=== PATIENT | male | born 1960 | race Caucasian/White ===

== ENCOUNTER 2018-02-28 13:07 | Emergency (ER) | payer MEDICARE, OTHER, SELFPAY ==
[2018-02-28 13:12] VITALS: BP 148/84; PULSE 82; RESP 20; TEMP 36.7; O2SAT 96
--- NOTE | 2018-02-28 14:56 | DI.CT.S_ITS ---
PROCEDURE: CT ABDOMEN PELVIS W CON INDICATIONS: Generalized abdominal pain with bloating TECHNIQUE: After the administration of intravenous contrast, 5 mm thick sections acquired from the diaphragm to the symphysis. 5 mm coronal and sagittal reformats were acquired. For radiation dose reduction, the following was used: automated exposure control, adjustment of mA and/or kV according to patient size. COMPARISON: None. FINDINGS: Image quality: Excellent. ABDOMEN: Lung bases: No pulmonary infiltrates or pleural effusions. There are small sub-4 mm peripheral nodules seen bilaterally, left greater than right such as series 3/image 2. Heart size is normal. No pericardial effusion. No hiatal hernia. Mild, circumferential wall thickening distal esophagus. Solid organs: Liver is normal in size and homogeneously hypodense in enhancement. Gallbladder appears normal. Biliary system is non dilated. Pancreas enhances normally. Spleen is normal in size and enhancement. No adrenal nodules. Kidneys demonstrate normal size and enhancement, without hydronephrosis. Peritoneum and bowel: Bowel loops demonstrate normal wall thickness and caliber. Normal appendix. No free fluid or air. Nodes and vessels: No retroperitoneal or mesenteric adenopathy by size criteria. Aorta and inferior vena cava are normal in size. Miscellaneous: No ventral hernias. PELVIS: Genitourinary: Bladder wall thickness is normal. Prostate and seminal vesicles appear normal. Miscellaneous: No inguinal hernias or adenopathy. Bones: No suspicious bony lesions. No acute vertebral body compression fractures. There is mild anterior wedging lower thoracic vertebrae IMPRESSION: 1. No acute findings in the abdomen or pelvis. 2. Hepatic steatosis. Correlate with liver function tests. 3. Normal appendix. No evidence of inflammatory bowel disease. 4. Scattered small peripheral nodules in the lung base are indeterminate. A noncontrast CT chest in 3-6 months is suggested. Dictated by: Farhat Gray M.D. on 02/28/2018 at 16:07 Approved by: Farhat Gray M.D. on 02/28/2018 at 16:16
[2018-02-28] MEDS: KETOROLAC 60 MG/2 ML VIAL 30 MG IV (15:04)
[2018-02-28] MEDS: SODIUM CHLORIDE 0.9% 1,000 ML 150 ML IV (15:06)
[2018-02-28] MEDS: ONDANSETRON 4 MG/2 ML INJ IV (15:06)
[2018-02-28 15:08] LABS: Add Manual Diff / Slide Review NO; Basophils Percent Auto 1.1 % (0-2); Hematocrit 46.2 % (41-53); Hemoglobin 15.5 g/dL (13.5-17.5); Lymphocytes Percent Auto 35.8 % (25-40); Mean Corpuscular HGB Conc 33.6 % (30-36); Mean Corpuscular Hemoglobin 31.8 PG (26-34); Mean Corpuscular Volume 94.7 fL (80-100); Monocytes Percent Auto 12.9 % (3-14); Neutrophils Absolute Auto 3100 /uL (3000-5900); Neutrophils Percent Auto 45.2 % (50-75); Platelet Count 245 X10^3/uL (150-400); Red Blood Cell Count 4.87 X10^6/uL (4.5-5.9); Red Cell Distribution Width 12.9 % (11.6-14.8); White Blood Cell Count 6.8 X10^3/uL (4.5-11.0)
[2018-02-28 15:17] LABS: Alanine Aminotransferase 39 IU/L (21-72); Albumin Globulin Ratio 1.4 (1.0-2.8); Alkaline Phosphatase 81 U/L (38-126); Aspartate Aminotransferase 35 IU/L (17-59); Bilirubin Total 0.7 mg/dL (0.2-1.3); Blood Urea Nitrogen 12 mg/dL (9-20); Carbon Dioxide 27 mmol/L (22-32); Chloride 103 mmol/L (98-107); Estimated Glomerular Filt Rate > 60.0 mL/min (>60); Globulin 2.9 g/dL (1.7-4.1); Glucose 248 mg/dL (70-100); HEMOLYSIS 30 (0-50); Lipase 78 U/L (23-300); Potassium 4.3 mmol/L (3.4-5.1); Sodium 139 mmol/L (137-145); Total Protein 6.9 g/dL (6.3-8.2)
--- NOTE | 2018-02-28 15:18 | ED_ITS ---
HPI - Abdominal Pain <KYLAH Arauz - Last Filed: 02/28/18 20:57> General Chief Complaint: Abdominal Pain Stated Complaint: STOMACH BLOATING,NAUSEA Time Seen by Provider: 02/28/18 13:47 Source: patient Mode of arrival: ambulatory Limitations: no limitations History of Present Illness HPI narrative: 57-year-old male here for complaint of having pain into his abdominal area over the last several days approximately 3-5. He states that he has also had bloating during the same time. He reports his last bowel movement was yesterday and was unremarkable although slightly like color. He denies any trauma to the abdomen. He states he does have some nausea as well. No fevers. Although he does state that he fell he did have a chill a couple days ago. Positive p.o. intake. He denies any urinary symptoms. He denies any stressors or relievers of her symptoms. MD complaint: abdominal pain Related Data Home Medications Medication Instructions Recorded Confirmed Several Other Meds [facility] 02/28/18 simvastatin 20 mg PO DAILY 02/28/18 sitagliptin-metformin [Janumet] 1 tab PO BID 02/28/18 02/28/18 Previous Rx's Medication Instructions Recorded ondansetron 4 mg PO TID PRN #9 tab 02/28/18 Allergies Allergy/AdvReac Type Severity Reaction Status Date / Time meperidine [From Demerol] Allergy Severe Anaphylaxis Verified 02/28/18 13:15 Review of Systems <KYLAH Arauz - Last Filed: 02/28/18 20:57> Constitutional Reports chills and Denies fever(s) Eyes Denies change in vision, Denies eye discharge, Denies irritation and Denies loss of vision ENT Ears, Nose, Mouth, and Throat: Denies change in voice, Denies neck pain and Denies sore throat Cardiovascular Denies chest pain, Denies irregular heart rhythm, Denies lightheadedness, Denies palpitations, Denies dyspnea, Denies dyspnea on exertion and Denies orthopnea Respiratory Denies cough, Denies dyspnea, Denies dyspnea on exertion and Denies wheezing Gastrointestinal Gastrointestinal: Reports abdominal pain and Reports bloating Genitourinary Denies hematuria, Denies flank pain, Denies urinary incontinence and Denies urinary urgency Musculoskeletal Denies neck pain Integumentary/Breasts Denies pruritus, Denies erythema, Denies rash and Denies wounds Neurologic Denies confusion and Denies loss of vision Psychiatric Denies anxiety, Denies confusion, Denies depression, Denies homicidal ideation and Denies suicidal ideation Endocrine Denies palpitations Hematologic/Lymphatic Denies easy bruising Allergic/Immunologic Denies wheezing Exam <KYLAH Arauz - Last Filed: 02/28/18 20:57> Initial Vital Signs Initial Vital Signs: Vital Signs Temperature 98.1 F 02/28/18 13:12 Pulse Rate 82 02/28/18 13:12 Respiratory Rate 20 02/28/18 13:12 Blood Pressure 148/84 H 02/28/18 13:12 Pulse Oximetry 96 02/28/18 13:12 Const General: cooperative and well developed Nutritional Appearance: well nourished Orientation: alert, awake, oriented x3 and not confused HENMT Mouth: oral mucosae normal and moist mucous membranes Eyes Conjunctivae: conjunctivae normal Sclera: sclerae normal Pupils: PERRL EOM: EOM intact bilaterally Resp Effort & Inspection: normal respiratory effort, able to speak in complete sentences, no respiratory distress and no use of accessory muscles Auscultation: clear to auscultation bilaterally, no rales, no rhonchi and no wheezes Cardio Rate: regular rate Rhythm: regular rhythm Heart Sounds: no click, no gallops, no murmurs and no rubs Pulses: normal peripheral pulses GI Inspection: non-distended Palpation: soft, no hepatosplenomegaly, No guarding, No pulsatile mass and tender (Generalized abdominal discomfort) Auscultation: normal bowel sounds General: No CVA tenderness Skin General: no rashes or lesions noted, No jaundice and No petechiae Neuro General: alert, oriented x3, gait normal and no focal motor deficits Speech: speech normal <Manuel Berry DO - Last Filed: 03/01/18 19:29> Initial Vital Signs Initial Vital Signs: Vital Signs Temperature 98.1 F 02/28/18 13:12 Pulse Rate 82 02/28/18 13:12 Respiratory Rate 20 02/28/18 13:12 Blood Pressure 148/84 H 02/28/18 13:12 Pulse Oximetry 96 02/28/18 13:12 Course <KYLAH Arauz - Last Filed: 02/28/18 20:57> Orders Ordered: Discontinued Medications Sodium Chloride (Normal Saline 0.9%) 1,000 mls @ 150 mls/hr IV CONT [facility] Last Infusion: 02/28/18 17:30 Dose: 0 mls/hr Admin: 02/28/18 15:06 Dose: 150 mls/hr Ketorolac Tromethamine (Toradol) 30 mg IV NOW ONE Stop: 02/28/18 14:56 Last Admin: 02/28/18 15:04 Dose: 30 mg Ondansetron HCl (Zofran) 4 mg IV NOW ONE Stop: 02/28/18 14:56 Last Admin: 02/28/18 15:06 Dose: 4 mg Vital Signs - 8 hr 02/28/18 13:12 02/28/18 15:22 02/28/18 17:26 Temperature 98.1 F 98.4 F Pulse Rate 82 68 68 Respiratory Rate 20 15 18 Blood Pressure 148/84 H 120/75 Blood Pressure [Left Arm] 140/86 H Pulse Oximetry 96 98 99 <Manuel Berry DO - Last Filed: 03/01/18 19:29> Orders Ordered: Discontinued Medications Sodium Chloride (Normal Saline 0.9%) 1,000 mls @ 150 mls/hr IV CONT [facility] Last Infusion: 02/28/18 17:30 Dose: 0 mls/hr Admin: 02/28/18 15:06 Dose: 150 mls/hr Ketorolac Tromethamine (Toradol) 30 mg IV NOW ONE Stop: 02/28/18 14:56 Last Admin: 02/28/18 15:04 Dose: 30 mg Ondansetron HCl (Zofran) 4 mg IV NOW ONE Stop: 02/28/18 14:56 Last Admin: 02/28/18 15:06 Dose: 4 mg Vital Signs - 8 hr 02/28/18 13:12 02/28/18 15:22 02/28/18 17:26 Temperature 98.1 F 98.4 F Pulse Rate 82 68 68 Respiratory Rate 20 15 18 Blood Pressure 148/84 H 120/75 Blood Pressure [Left Arm] 140/86 H Pulse Oximetry 96 98 99 MDM - Abdominal Pain <KYLAH Arauz - Last Filed: 02/28/18 20:57> Lab Data Result diagrams: 02/28/18 13:45 02/28/18 13:45 Lab Results 02/28/18 02/28/18 Range/Units 13:45 13:45 WBC 6.8 (4.5-11.0) X10^3/uL RBC 4.87 (4.5-5.9) X10^6/uL Hgb 15.5 (13.5-17.5) g/dL Hct 46.2 (41-53) % MCV 94.7 (80-100) fL MCH 31.8 (26-34) PG MCHC 33.6 (30-36) % RDW 12.9 (11.6-14.8) % Plt Count 245 (150-400) X10^3/uL Neut % (Auto) 45.2 L (50-75) % Lymph % (Auto) 35.8 (25-40) % [place] % (Auto) 12.9 (3-14) % Eos % (Auto) 5.0 H (2-4) % Baso % (Auto) 1.1 (0-2) % Neut # (Auto) 3100 (1097-3264) /uL Sodium 139 (137-145) mmol/L Potassium 4.3 (3.4-5.1) mmol/L Chloride 103 (98-107) mmol/L Carbon Dioxide 27 (22-32) mmol/L BUN 12 (9-20) mg/dL Creatinine 0.60 L (0.66-1.25) mg/dL Estimated GFR > 60.0 (>60) mL/min BUN/Creatinine Ratio 20.0 (6-22) Glucose 248 H (70-100) mg/dL Calcium 9.0 (8.4-10.2) mg/dL Total Bilirubin 0.7 (0.2-1.3) mg/dL AST 35 (17-59) IU/L ALT 39 (21-72) IU/L Alkaline Phosphatase 81 (38-126) U/L Total Protein 6.9 (6.3-8.2) g/dL Albumin 4.0 (3.5-5.0) g/dL Globulin 2.9 (1.7-4.1) g/dL Albumin/Globulin Ratio 1.4 (1.0-2.8) Lipase 78 (23-300) U/L Point of care testing: Urine Dip Bedside Urine Glucose 1000 mg/dl Bedside Urine Bilirubin - Negative Bedside Urine Ketone - Negative Urine Specific [place] 1.020 Bedside Urine Occult Blood - Negative Bedside Urine pH 6.0 Bedside Urine Protein +/- 15 Bedside Urine Urobilinogen - Negative Bedside Urine Nitrite - Negative Bedside Urine Leukocytes - Negative Esterase Imaging Data CT scan - abdomen: Radiologist's impression: PROCEDURE: CT ABDOMEN PELVIS W CON INDICATIONS: Generalized abdominal pain with bloating TECHNIQUE: After the administration of intravenous contrast, 5 mm thick sections acquired from the diaphragm to the symphysis. 5 mm coronal and sagittal reformats were acquired. For radiation dose reduction, the following was used: automated exposure control, adjustment of mA and/or kV according to patient size. COMPARISON: None. FINDINGS: Image quality: Excellent. ABDOMEN: Lung bases: No pulmonary infiltrates or pleural effusions. There are small sub- 4 mm peripheral nodules seen bilaterally, left greater than right such as series 3/ image 2. Heart size is normal. No pericardial effusion. No hiatal hernia. Mild, circumferential wall thickening distal esophagus. Solid organs: Liver is normal in size and homogeneously hypodense in enhancement. Gallbladder appears normal. Biliary system is non dilated. Pancreas enhances normally. Spleen is normal in size and enhancement. No adrenal nodules. Kidneys demonstrate normal size and enhancement, without hydronephrosis. Peritoneum and bowel: Bowel loops demonstrate normal wall thickness and caliber. Normal appendix. No free fluid or air. Nodes and vessels: No retroperitoneal or mesenteric adenopathy by size criteria. Aorta and inferior vena cava are normal in size. Miscellaneous: No ventral hernias. PELVIS: Genitourinary: Bladder wall thickness is normal. Prostate and seminal vesicles appear normal. Miscellaneous: No inguinal hernias or adenopathy. Bones: No suspicious bony lesions. No acute vertebral body compression fractures. There is mild anterior wedging lower thoracic vertebrae IMPRESSION: 1. No acute findings in the abdomen or pelvis. 2. Hepatic steatosis. Correlate with liver function tests. 3. Normal appendix. No evidence of inflammatory bowel disease. 4. Scattered small peripheral nodules in the lung base are indeterminate. A noncontrast CT chest in 3-6 months is suggested. Dictated by: Farhat Gray M.D. on 02/28/2018 at 16:07 Approved by: Farhat Gray M.D. on 02/28/2018 at 16:16 MDM Narrative Medical decision making narrative: CBC was obtained was unremarkable. Chem panel shows elevated blood sugar of 248 otherwise was unremarkable. A urinalysis was negative for urinary tract infection. Lipase was negative. CT of the abdomen was obtained was negative for any acute findings. No emergent cause of his generalized abdominal pain is found. Differential between abdominal wall pain and acute gastroenteritis. [id number] Tylenol or Motrin as needed for any discomfort. Follow up with primary care provider in the next several days for re-evaluation. For any worsening symptoms return to the emergency room. <Manuel Berry DO - Last Filed: 03/01/18 19:29> Lab Data Lab Results 02/28/18 02/28/18 Range/Units 13:45 13:45 WBC 6.8 (4.5-11.0) X10^3/uL RBC 4.87 (4.5-5.9) X10^6/uL Hgb 15.5 (13.5-17.5) g/dL Hct 46.2 (41-53) % MCV 94.7 (80-100) fL MCH 31.8 (26-34) PG MCHC 33.6 (30-36) % RDW 12.9 (11.6-14.8) % Plt Count 245 (150-400) X10^3/uL Neut % (Auto) 45.2 L (50-75) % Lymph % (Auto) 35.8 (25-40) % [place] % (Auto) 12.9 (3-14) % Eos % (Auto) 5.0 H (2-4) % Baso % (Auto) 1.1 (0-2) % Neut # (Auto) 3100 (9990-1467) /uL Sodium 139 (137-145) mmol/L Potassium 4.3 (3.4-5.1) mmol/L Chloride 103 (98-107) mmol/L Carbon Dioxide 27 (22-32) mmol/L BUN 12 (9-20) mg/dL Creatinine 0.60 L (0.66-1.25) mg/dL Estimated GFR > 60.0 (>60) mL/min BUN/Creatinine Ratio 20.0 (6-22) Glucose 248 H (70-100) mg/dL Calcium 9.0 (8.4-10.2) mg/dL Total Bilirubin 0.7 (0.2-1.3) mg/dL AST 35 (17-59) IU/L ALT 39 (21-72) IU/L Alkaline Phosphatase 81 (38-126) U/L Total Protein 6.9 (6.3-8.2) g/dL Albumin 4.0 (3.5-5.0) g/dL Globulin 2.9 (1.7-4.1) g/dL Albumin/Globulin Ratio 1.4 (1.0-2.8) Lipase 78 (23-300) U/L Point of care testing: Urine Dip Bedside Urine Glucose 1000 mg/dl Bedside Urine Bilirubin - Negative Bedside Urine Ketone - Negative Urine Specific [place] 1.020 Bedside Urine Occult Blood - Negative Bedside Urine pH 6.0 Bedside Urine Protein +/- 15 Bedside Urine Urobilinogen - Negative Bedside Urine Nitrite - Negative Bedside Urine Leukocytes - Negative Esterase Discharge Plan Departure Patient Disposition: Home, Self-Care Clinical Impression: Abdominal pain Discharge Date/Time: 02/28/18 17:26 Interventions: ED Discharge Assessment Last Done: 02/28/18 17:26 Instructions: DI for Abdominal Pain-Adult Activity Restrictions/Additional Instructions: Laboratory results today were unremarkable with the exception of elevated blood glucose. Ensure you are taking your diabetes medicine as prescribed. CT of the abdomen was obtained was negative for any acute findings. Signs and symptoms may be due to viral illness or due to abdominal wall pain. Use over- the-counter Tylenol or Motrin as needed for any discomfort. Follow up with her primary care provider in the next several days. For any worsening symptoms return to the emergency room. Prescriptions: New ondansetron 4 mg tablet,disintegrating 4 mg PO TID PRN (Reason: nausea and vomiting) Qty: 9 RF: 0 No Action simvastatin 20 mg tablet 20 mg PO DAILY RF: 0 sitagliptin-metformin [Janumet] 50-1,000 mg tablet 1 tab PO BID RF: 0 Several Other Meds Through [facility] RF: 0 Referrals: [facility] [Provider Group] <Manuel Berry, - Last Filed: 03/01/18 19:29> Cosign ED Attending Becky Attestation: I was available for consultation during this patient's emergency department encounter
[2018-02-28 15:22] VITALS: BP 140/86; PULSE 68; RESP 15; O2SAT 98
[2018-02-28 17:26] VITALS: BP 120/75; PULSE 68; RESP 18; TEMP 36.9; O2SAT 99
== END 2018-02-28 17:26 | disposition home or self-care (01) ==
PROVIDERS: Emergency Provider Nurse Practitioner Family
DX: R10.9 Unspecified abdominal pain (principal)
CPT/HCPCS: 36591; 74177; 80053; 81003; 83690; 85025; 96361; 96374; 96375; 99283; 99284; J1885; J2405; Q9967

== ENCOUNTER → 2019-04-13 15:22 | Outpatient (CLI) | payer MEDICARE, OTHER, SELFPAY ==
--- NOTE | 2019-04-13 | DI.MRI.S_ITS ---
PROCEDURE: MR SHOULDER RT WO CON INDICATIONS: Right shoulder pain TECHNIQUE: Noncontrast oblique coronal T2 fast spin echo with fat saturation, oblique sagittal T1 spin echo and T2 fast spin echo with fat saturation, axial T1 spin echo and T2 fast spin echo with fat saturation through the shoulder. COMPARISON: [facility], , SHOULDER WITHOUT CONTRAST, 03/09/2017, 15:46. FINDINGS: Image quality: Excellent. Rotator cuff: Tendinosis and low to moderate grade articular and bursal surface partial-thickness tear involving distal supraspinatus at its insertion the humeral head is seen extending to musculotendinous junction. There is tendinosis and low-grade articular and bursal surface partial-thickness tear involving distal supraspinatus at its insertion the humeral head. Distal subscapularis tendon is intact. Sagittal images demonstrate mild to moderate supraspinatus muscle atrophy. Bones and bursae: No bone marrow contusions or fractures. Moderate acromioclavicular joint and glenohumeral joint osteoarthritis is seen. There is small to moderate amount of fluid within subacromial subdeltoid bursa. No gross intra-articular loose body. Capsule and soft tissues: In the absence of intra-articular contrast, there is superior anterior labral tear extending from 12 to 2:00 position. There is also suggestion of anterior inferior labral tear 4 to 6:00 position. The glenohumeral ligaments appear intact. Tendinosis and low-grade partial-thickness tear involving proximal intra-articular portion of long head biceps tendon is seen. The rotator interval appears normal, without fibrosis. The coracohumeral ligament is normal in thickness. IMPRESSION: 1. Tendinosis and low to moderate grade articular and bursal surface partial-thickness tear involving distal supraspinatus and infraspinatus insertions are humeral head extending to musculotendinous junction. Mild supraspinatus muscle atrophy. 2. Moderate acromioclavicular joint and glenohumeral joint osteoarthritis. 3. Suggestion of superior anterior labral tear at 12 to 2:00 position and an anterior inferior labral tear at 4 to 6:00 position. 4. Tendinosis and low-grade partial-thickness tear involving proximal intra-articular portion of long head of the biceps tendon. Dictated by: Ramiro Khalil M.D. on 04/13/2019 at 16:45 Approved by: Ramiro Khalil M.D. on 04/13/2019 at 16:56
--- NOTE | 2019-04-13 | DI.MRI.S_ITS ---
PROCEDURE: MR CERVICAL SPINE WO CON INDICATIONS: Neck and right shoulder pain TECHNIQUE: Noncontrast sagittal T1 spin echo and T2 fast spin echo, sagittal STIR, foraminal oblique sagittal T2 fast spin echo, and axial gradient echo or T2 fast spin echo through the cervical spine. COMPARISON: [facility], , C-SPINE WITHOUT CONTRAST, 04/08/2017, 14:17. FINDINGS: Image quality: Excellent. Alignment and Curvature: There is normal bony alignment. Bone Marrow: Marrow demonstrates normal overall signal. Spinal Cord: Visualized spinal cord has normal size and signal. No cerebellar tonsillar herniation. Paraspinous Soft Tissues: No paravertebral masses. Prevertebral soft tissues are normal in thickness. C2-C3: Normal appearance. C3-C4: Moderate disc osteophyte complex is again seen eccentric to the right unchanged from prior study. Right lateral recess disc osteophyte protrusion is again noted and unchanged. Bilateral facet joint hypertrophy is also seen. Moderate bilateral neuroforaminal narrowing is seen. Moderate central canal stenosis is also noted and unchanged. C4-C5: Mild loss of disc height is again seen. Moderate disc osteophyte complex is again seen. Bilateral facet joint hypertrophy is again noted. Moderate right worse than left bilateral neuroforaminal narrowing is seen. Moderate central canal stenosis is also noted. This is also unchanged from previous study. C5-C6: Decreased intervertebral disc space and degenerative endplate changes are again noted. Moderate to prominent disc osteophyte complex formation and bilateral facet hypertrophic changes are again seen. Moderate to severe central canal stenosis and bilateral lower foraminal narrowing is again seen slightly worse on the right side unchanged from prior study. C6-C7: Decreased intervertebral disc space is seen. Moderate prominent disc osteophyte complex is again noted. Uncovertebral joint hypertrophy is again noted. Moderate bilateral neuroforaminal narrowing or central canal stenosis is again seen and unchanged. C7-T1: Normal appearance. IMPRESSION: 1. No significant changes from previous study in 2017. 2. Multilevel cervical spine degenerative changes more prominent at C5-6 level as above. Dictated by: Ramiro Khalil M.D. on 04/13/2019 at 16:56 Approved by: Ramiro Khalil M.D. on 04/13/2019 at 17:00
== END ==
PROVIDERS: Visit Provider Physical Medicine & Rehabilitation
DX: M54.2 Cervicalgia (principal); M25.511 Pain in right shoulder; M19.011 Primary osteoarthritis, right shoulder; M75.111 Incomplete rotator cuff tear or rupture of right shoulder, not specified as traumatic; M47.812 Spondylosis without myelopathy or radiculopathy, cervical region; S46.111A Strain of muscle, fascia and tendon of long head of biceps, right arm, initial encounter; M62.511 Muscle wasting and atrophy, not elsewhere classified, right shoulder
CPT/HCPCS: 72141; 73221

== ENCOUNTER 2021-05-01 14:45 | Emergency (ER) | payer MEDICARE, OTHER, SELFPAY ==
[2021-05-01 14:58] VITALS: BP 126/67; PULSE 88; RESP 18; TEMP 36.1; O2SAT 98; BMI 29.7
--- NOTE | 2021-05-01 15:13 | DI.US.S_ITS ---
PROCEDURE: US PERIPH VENOUS LOW EXTREM RT INDICATIONS: RIGHT LEG PAIN WITHOUT INJURY TECHNIQUE: Real-time imaging, as well as color and pulse Doppler interrogation, were performed of the lower extremity deep veins from the inguinal ligament to the popliteal fossa. COMPARISON: None. FINDINGS: The common femoral, femoral and popliteal veins are normally compressible, and free of intraluminal thrombus. Color and pulse Doppler demonstrate normal phasic intraluminal flow. There is normal augmentation response to distal compression maneuver. IMPRESSION: No evidence of DVT in visualized right lower extremity veins. Dictated by: Ramiro Khalil M.D. on 05/01/2021 at 16:35 Approved by: Ramiro Khalil M.D. on 05/01/2021 at 16:36
[2021-05-01 20:20] VITALS: BP 143/63; PULSE 68; RESP 15; O2SAT 97
--- NOTE | 2021-05-01 20:38 | ED_ITS ---
HPI - Extremity Problem General Chief complaint: Extremity Problem,Nontraumatic Stated complaint: RIGHT LEG MASSIVE PAIN Time Seen by Provider: 05/01/21 20:33 Source: patient Mode of arrival: Ambulatory Limitations: no limitations History of Present Illness HPI Narrative: Patient is a 60-year-old male with history of diabetes, PTSD, hyperlipidemia, GERD who presents with right leg pain ongoing for last 2 days. He says he does not remember any injury. He says he is active at home in the wood shop but can not pinpoint any specific injury. He certainly did not fall. He has pinpoint pain in his superior ITP band. He says he cannot touch and 1 area. His tried to massage it and was unsuccessful. He has been putting heat on it. He took Flexeril last night he has been taking ibuprofen intermittently without significant relief. He denies any numbness tingling or weakness. He says it is very difficult to go up stairs but he can walk although it is painful. Within fever or chills. He denies any back pain no buttock pain. This certainly reproducible to touch. Related Data Home Medications Medication Instructions Recorded Confirmed simvastatin 20 mg tablet 10 mg PO BEDTIME 02/28/18 03/02/18 sitagliptin 50 mg-metformin 1,000 1 tab PO BID 02/28/18 02/28/18 mg tablet ammonium lactate 12 % topical cream 1 applic TOPICAL [id number] 03/02/18 03/02/18 cholecalciferol (vitamin D3) 25 1,000 unit PO DAILY 03/02/18 03/02/18 mcg (1,000 unit) tablet (Vitamin D3) ketoconazole 2 % topical cream 1 applic TOPICAL DAILY 03/02/18 03/02/18 omeprazole 20 mg capsule,delayed 20 mg PO DAILY 03/02/18 03/02/18 release prazosin 2 mg capsule 2 mg PO BEDTIME 03/02/18 03/02/18 quetiapine 400 mg tablet 200 mg PO BEDTIME 03/02/18 03/02/18 sulindac 200 mg tablet 200 mg PO BID 03/02/18 03/02/18 triamcinolone acetonide 0.025 % 1 applic TOPICAL BID PRN 03/02/18 03/02/18 topical cream Previous Rx's Medication Instructions Recorded ondansetron 4 mg disintegrating 4 mg PO TID PRN #9 tab 02/28/18 tablet hydrocodone 5 mg-acetaminophen 325 1 tab PO Q6H PRN #10 tab 05/01/21 mg tablet methocarbamol 750 mg tablet 750 mg PO TID PRN #20 tab 05/01/21 Allergies Allergy/AdvReac Type Severity Reaction Status Date / Time meperidine [From Demerol] Allergy Severe Anaphylaxis Verified 05/01/21 14:58 Review of Systems Review of Systems Narrative: GENERAL: Denies chills, fatigue, malaise, fever, sweats, travel HEENT: Denies sinus pain, ear pain, sore throat, difficulty swallowing, neck pain RESPIRATORY: Denies dyspnea, cough, wheezing, hemoptysis, sputum. CARDIOVASCULAR: Denies chest pain, palpitations, orthopnea, edema GASTROINTESTINAL: Denies nausea, vomiting, abdominal pain, diarrhea, constipation, melena. : Denies dysuria, frequency, incontinence, hematuria, urinary retention, flank pain. MUSCULOSKELETAL: See HPI SKIN: No rash, no erythema, no pruritus NEUROLOGIC: Denies weakness, dizziness, headache, numbness, change in speech, co nfusion PSYCHIATRIC: No concerning psychosocial issues. 12 point review of systems is negative except for those stated above and HPI Patient History Medical History (Updated 05/01/21 @ 21:38 by Hortencia Welsh DO) Type 2 diabetes mellitus Social History Smoking Status: Current every day smoker Smoking Status: Current every day smoker alcohol intake frequency: 0-2 drinks per day Substance Use Type: does not use Exam Initial Vital Signs Initial Vital Signs: Vital Signs Temperature 97.0 F L 05/01/21 14:58 Pulse Rate 88 05/01/21 14:58 Respiratory Rate 18 05/01/21 14:58 Blood Pressure 126/67 05/01/21 14:58 Pulse Oximetry 98 05/01/21 14:58 GENERAL: Alert 60-year-old male appears in pain HEENT: Head atraumatic,EOMI, pupils reactive, face symmetric, moist mucous membranes CARDIOVASCULAR: Regular rate and rhythm without murmurs, rubs or gallops. RESPIRATORY: Breath sounds equal bilaterally, no wheezes rales or rhonchi. ABDOMEN: Soft, nontender. Normoactive bowel sounds all 4 quadrants. No guarding or rebound. BACK: No vertebral tenderness no step-off : No CVA tenderness EXTREMITIES: Normal range of motion, no clubbing or edema. Neurovascularly intact Right leg along the superior aspect of the IT band extremely tender to touch mild swelling no erythema. Decreased range of motion secondary to pain. No significant buttock pain mild lower lumbar pain strong distal pedal pulse intact. No significant swelling of the leg. Hip itself is nontender pelvis is stable. NEUROLOGICAL: Alert and oriented x4.Normal gait and speech. SKIN: Warm, dry, no laceration, no petechiae, no rashes or lesions. Course Orders Ordered: ED Orders 05/01/21 15:13 periph venous low extrem rt Stat Discontinued Medications Hydrocodone Bitart/Acetaminophen (Hydrocodone/Acet 5/325 Prepack) 1 bottle MISC SEEINSTR ONE Stop: 05/01/21 21:39 Last Admin: 05/01/21 21:42 Dose: 1 bottle Documented by: TEJAL Ketorolac Tromethamine (Ketorolac 30 Mg/Ml Vial) 30 mg IM NOW ONE Stop: 05/01/21 20:52 Last Admin: 05/01/21 20:57 Dose: 30 mg Documented by: TEJAL Vital Signs Vital signs: Vital Signs - 8 hr 05/01/21 14:58 05/01/21 20:20 Temperature 97.0 F L Pulse Rate 88 68 Respiratory Rate 18 15 Blood Pressure 126/67 143/63 H Pulse Oximetry 98 97 MDM - Extremity (Nontraumatic) Imaging Data US - DVT: Radiologist's Impression: PROCEDURE:? US PERIPH VENOUS LOW EXTREM RT ? INDICATIONS:? RIGHT LEG PAIN WITHOUT INJURY ? TECHNIQUE:? Real-time imaging, as well as color and pulse Doppler interrogation, were performed of the lower extremity deep veins from the inguinal ligament to the popliteal fossa.? ? COMPARISON:? None. ? FINDINGS:? The common femoral, femoral and popliteal veins are normally compressible, and free of intraluminal thrombus.? Color and pulse Doppler demonstrate normal phas ic intraluminal flow.? There is normal augmentation response to distal compression maneuver. ? ? IMPRESSION:? No evidence of DVT in visualized right lower extremity veins. ? ? Dictated by: Ramiro Khalil M.D. on 05/01/2021 at 16:35 ? ? [facility] Narrative Medical decision making narrative: Patient definitely has pinpoint reproducible tenderness. There is no sign of infection. He actually has improvement after Toradol and definitely has increased range of motion. No neurologic deficits. This seems to be musculoskeletal based on history and physical exam. DVT study is also negative, would be very unlikely for this to be a DVT. Discharge Plan Departure Patient Disposition: Home Clinical Impression: Iliotibial band syndrome of right side Instructions: Iliotibial Band Syndrome Activity Restrictions/Additional Instructions: *You have been diagnosed with iliotibial band syndrome *What to do: At this time this does seem to be a tightening of your eye T band and musculoskeletal. I recommend heating pad, stretching. *Continue to take medications as directed Kearsarge 1 tablet every 6 hours if needed for severe pain Ibuprofen 800 mg every 8 hours if needed for [id number] pain Methocarbamol 750-1500 mg 3 times a day *Follow up with your primary care provider in 2-3 days *Return to ER if you should have fever, redness, numbness, tingling, weakness or any new, worsening or concerning symptoms CONTROLLED SUBSTANCE DISCHARGE (Narcotoic/benzodiazepine/Flexeril/Phenergan) 1. You have been prescribed narcotic medications, it does have acetaminophen/Tylenol/paracetamol in it, DO NOT TAKE MORE THAN 4,00mg in 24 yulissa rs of Tylenol. TRAMADOL DOES NOT CONTAIN TYLENOL 2. Please understand that we cannot provide further refills of narcotics, benzodiazepines or controlled substances through the ED and her pain management will need to be through your provider. 3. While on these medications you cannot drive or operate heavy machinery. 4. You cannot sign legal documents or perform any duties such as this. 5. As long as you're taking opiate pain medications he should also be taking a stool softener such as Colace, Dulcolax, MiraLAX or prune juice, to help avoid constipation. Prescriptions: New methocarbamol 750 mg tablet 750 mg PO TID PRN (Reason: muscle spasm) Qty: 20 RF: 0 hydrocodone-acetaminophen 5-325 mg tablet 1 tab PO Q6H PRN (Reason: pain) Qty: 10 RF: 0 No Action simvastatin 20 mg tablet 10 mg PO BEDTIME RF: 0 sitagliptin-metformin [Janumet] 50-1,000 mg tablet 1 tab PO BID RF: 0 ondansetron 4 mg tablet,disintegrating 4 mg PO TID PRN (Reason: nausea and vomiting) Qty: 9 RF: 0 triamcinolone acetonide 0.025 % Cream 1 applic TOPICAL BID PRN (Reason: itching or rash) RF: 0 omeprazole 20 mg Capsule,Delayed Release(Dr/Ec) 20 mg PO DAILY RF: 0 ammonium lactate 12 % Cream 1 applic TOPICAL [id number] RF: 0 ketoconazole 2 % Cream 1 applic TOPICAL DAILY RF: 0 sulindac 200 mg Tablet 200 mg PO BID RF: 0 prazosin 2 mg Capsule 2 mg PO BEDTIME RF: 0 quetiapine 400 mg Tablet 200 mg PO BEDTIME RF: 0 cholecalciferol (vitamin D3) [Vitamin D3] 1,000 unit Tablet 1,000 unit PO DAILY RF: 0
[2021-05-01] MEDS: KETOROLAC 30 MG/ML VIAL IM (20:57)
[2021-05-01] MEDS: HYDROCODONE/ACET 5/325 PREPACK 1 BOTTLE MISC (21:42)
== END 2021-05-01 21:49 | disposition home or self-care (01) ==
PROVIDERS: Emergency Provider Emergency Medicine
DX: M76.31 Iliotibial band syndrome, right leg (principal)
CPT/HCPCS: 93971; 96372; 99283; J1885

== ENCOUNTER → 2021-11-13 11:16 | Outpatient (CLI) | payer OTHER, SELFPAY ==
--- NOTE | 2021-11-13 | DI.MRI.S_ITS ---
PROCEDURE: MR LUMBAR SPINE WO CON INDICATIONS: LUMBAR SPONDYLOSIS, back pain TECHNIQUE: Noncontrast sagittal T1 spin echo and T2 fast echo, sagittal STIR, and T2 fast spin echo through the lumbar spine. In cases with scoliosis, additional coronal T2 fast spin echo may be performed. COMPARISON: None. FINDINGS: Image quality: Excellent. Alignment and Curvature: There is normal bony alignment. Bone Marrow: Marrow is of normal overall signal. No acute vertebral body compression fractures. Spinal Cord: Conus medullaris terminates at the L1 level. Visualized cord demonstrates normal signal and size. Paraspinous Soft Tissues: No paravertebral masses. T12-L1: Normal appearance. L1-L2: Normal appearance. L2-L3: Disc height is maintained. Circumferential disc bulge and hypertrophic facet joints results in mild central stenosis. No foraminal stenosis. L3-L4: Disc height is maintained. Circumferential disc bulge and hypertrophic facet joints results in mild central stenosis. No foraminal stenosis. L4-L5: Disc height is maintained. Circumferential disc bulge and hypertrophic facet joints results in mild central stenosis. Mild left and no right foraminal stenosis. L5-S1: Disc height is maintained. No central or foraminal stenosis. IMPRESSION: 1. Mild multilevel degenerative disc disease and arthropathy noted without significant central or foraminal stenosis Approved by: Mitul Licona M.D. on 11/13/2021 at 12:30
== END ==
PROVIDERS: Referring Provider Physical Medicine & Rehabilitation; Visit Provider Physical Medicine & Rehabilitation
DX: M47.816 Spondylosis without myelopathy or radiculopathy, lumbar region (principal); M51.36 Other intervertebral disc degeneration, lumbar region
CPT/HCPCS: 72148

== ENCOUNTER 2022-02-16 16:00 | Emergency (ER) | payer OTHER, SELFPAY ==
[2022-02-16] VITALS (9 sets, daily range): BP systolic 96–167; BP diastolic 62–78; PULSE 65–87; RESP 18; TEMP 36.3; O2SAT 92–98
--- NOTE | 2022-02-16 16:53 | ED_ITS ---
HPI - Abdominal Pain <Pancho Guido PA-C - Last Filed: 02/16/22 20:28> General Chief Complaint: Abdominal Pain Stated Complaint: upper abd pain, lost 45 lbs in 6 months Time Seen by Provider: 02/16/22 16:33 Source: patient Mode of arrival: Ambulatory History of Present Illness HPI narrative: 61 yo M with past medical history diabetes, hyperlipidemia, GERD, PTSD presents to the ED with 6 months of epigastric pain. Patient states that he has lost 45 lb over the last 6 months, which he attributes to not being able to eat as much. Patient states that eating makes his pain worse, causes some mild nausea. Denies fever, chills, chest pain, shortness of breath, vomiting, diarrhea, constipation, dysuria, flank pain. [facility] was [facility], they recommended he go to the ED. patient had a CT abdomen pelvis in 2018 when he came in for abdominal pain, which showed sc attered small peripheral nodules in the lung base, but no other acute findings. Related Data Home Medications Medication Instructions Recorded Confirmed simvastatin 20 mg tablet 10 mg PO BEDTIME 02/28/18 03/02/18 sitagliptin 50 mg-metformin 1,000 1 tab PO BID 02/28/18 02/28/18 mg tablet ammonium lactate 12 % topical cream 1 applic topical [id number] 03/02/18 03/02/18 cholecalciferol (vitamin D3) 25 1,000 unit PO DAILY 03/02/18 03/02/18 mcg (1,000 unit) tablet (Vitamin D3) ketoconazole 2 % topical cream 1 applic topical DAILY 03/02/18 03/02/18 omeprazole 20 mg capsule,delayed 20 mg PO DAILY 03/02/18 03/02/18 release prazosin 2 mg capsule 2 mg PO BEDTIME 03/02/18 03/02/18 quetiapine 400 mg tablet 200 mg PO BEDTIME 03/02/18 03/02/18 sulindac 200 mg tablet 200 mg PO BID 03/02/18 03/02/18 triamcinolone acetonide 0.025 % 1 applic topical BID PRN itching 03/02/18 03/02/18 topical cream or rash Previous Rx's Medication Instructions Recorded ondansetron 4 mg disintegrating 4 mg PO TID PRN nausea and 02/28/18 tablet vomiting #9 tabs hydrocodone 5 mg-acetaminophen 325 1 tab PO Q6H PRN pain #10 tabs 05/01/21 mg tablet methocarbamol 750 mg tablet 750 mg PO TID PRN muscle spasm #20 05/01/21 tabs Allergies Allergy/AdvReac Type Severity Reaction Status Date / Time meperidine [From Demerol] Allergy Severe Anaphylaxis Verified 05/01/21 14:58 Review of Systems <Pancho Guido PA-C - Last Filed: 02/16/22 20:28> Review of Systems ROS Unobtainable: All systems reviewed & are unremarkable except as noted in HPI and below Constitutional Constitutional: Denies chills, Denies fatigue, Denies fever(s), Denies frequent falls, Denies lethargy, Denies weakness and Reports weight loss Eyes Eyes: Denies change in vision, Denies eye discharge, Denies irritation and Denies loss of vision ENT Ears, Nose, Mouth, and Throat: Denies change in voice, Denies dizziness, Denies neck pain, Denies sore throat and Denies throat swelling Cardiovascular Cardiovascular: Denies chest pain, Denies irregular heart rhythm, Denies l ightheadedness, Denies palpitations, Denies dyspnea, Denies dyspnea on exertion and Denies orthopnea Respiratory Respiratory: Denies cough, Denies dyspnea, Denies dyspnea on exertion and Denies wheezing Gastrointestinal Gastrointestinal: Reports abdominal pain, Denies change in bowel habits, Denies diarrhea, Reports nausea and Denies vomiting Genitourinary Genitourinary: Denies hematuria, Denies flank pain, Denies urinary incontinence and Denies urinary urgency Musculoskeletal Musculoskeletal: Denies back pain, Denies muscle weakness, Denies neck pain, Denies numbness and Denies tingling Integumentary/Breasts Skin/Breast: Denies pruritus, Denies erythema, Denies rash and Denies wounds Neurologic Neurologic: Denies behavioral changes, Denies confusion, Denies dizziness, Denies frequent falls, Denies loss of vision, Denies numbness, Denies tingling and Denies weakness Psychiatric Psychiatric: Denies anxiety, Denies behavioral changes, Denies confusion, Denies depression, Denies homicidal ideation and Denies suicidal ideation Endocrine Endocrine: Denies fatigue, Denies flushing and Denies palpitations Hematologic/Lymphatic Hematologic/Lymphatic: Denies easy bruising Allergic/Immunologic Allergic/Immunologic: Denies urticaria, Denies throat swelling and Denies wheezing Patient History <Pancho Guido PA-C - Last Filed: 02/16/22 20:28> Medical History Type 2 diabetes mellitus Social History Smoking Status: Current every day smoker Smoking Status: Current every day smoker alcohol intake frequency: 0-2 drinks per day Substance Use Type: does not use Exam <Pancho Guido PA-C - Last Filed: 02/16/22 20:28> Narrative Exam Narrative: Const General:?cooperative, healthy appearing and comfortable HENMT Head:?normal to inspection Ears:?hearing grossly normal bilaterally Nose:?external nose normal Face and sinus:?normal facial exam and sinuses nontender Mouth:?oral mucosae normal Throat:?posterior oropharynx normal Eyes General:?appearance normal, both eyes and all related structures Neck Neck:?normal visual inspection and no lymphadenopathy noted Resp Effort & Inspection:?normal respiratory effort Auscultation:?clear to auscultation bilaterally Cardio Rate:?regular rate Rhythm:?regular rhythm GI Abdomen is soft, nondistended. Tender to palpation in the epigastric region. Mild tenderness to palpation in the right upper quadrant. No CVA TTP Neuro General:?patient alert, patient awake and patient oriented x3 Initial Vital Signs Initial Vital Signs: Vital Signs Temperature 97.4 F L 02/16/22 16:14 Pulse Rate 87 02/16/22 16:14 Respiratory Rate 18 02/16/22 16:14 Blood Pressure 96/62 02/16/22 16:14 Pulse Oximetry 98 02/16/22 16:14 Oxygen Delivery Method 02/16/22 16:14 <Hortencia Welsh DO - Last Filed: 02/19/22 08:47> Initial Vital Signs Initial Vital Signs: Vital Signs Temperature 97.4 F L 02/16/22 16:14 Pulse Rate 87 02/16/22 16:14 Respiratory Rate 18 02/16/22 16:14 Blood Pressure 96/62 02/16/22 16:14 Pulse Oximetry 98 02/16/22 16:14 Oxygen Delivery Method 02/16/22 16:14 Course <Pancho Guido PA-C - Last Filed: 02/16/22 20:28> Orders Ordered: Discontinued Medications Al Hydrox/Mg Hydrox/Simethicone 20 ml/ Lidocaine HCl 15 ml 0 ml PO NOW ONE Stop: 02/16/22 16:57 Last Admin: 02/16/22 17:16 Dose: 10 ml Documented By: [facility]U Famotidine (Famotidine 20 Mg/2 Ml Vial) 20 mg IV NOW [facility] Last Admin: 02/16/22 17:16 Dose: 20 mg Documented By: AMU Sodium Chloride (Normal Saline 0.9%) 1,000 mls @ 1,000 mls/hr IV BOLUS ONE Stop: 02/16/22 17:59 Last Infusion: 02/16/22 19:33 Dose: 0 mls/hr Documented By: Admin: 02/16/22 17:16 Dose: 1,000 mls/hr Documented By: AMU Sodium Chloride (Normal Saline 0.9%) 1,000 mls @ 1,000 mls/hr IV BOLUS ONE Stop: 02/16/22 20:32 Last Infusion: 02/16/22 20:25 Dose: 0 mls/hr Documented By: Admin: 02/16/22 19:37 Dose: 1,000 mls/hr Documented By: AMU Vital Signs Vital signs: Vital Signs - 8 hr 02/16/22 16:14 Temperature 97.4 F L Pulse Rate 87 Respiratory Rate 18 Blood Pressure 96/62 Pulse Oximetry 98 Oxygen Delivery Method Room Air <Hortencia Welsh DO - Last Filed: 02/19/22 08:47> Orders Ordered: Discontinued Medications Al Hydrox/Mg Hydrox/Simethicone 20 ml/ Lidocaine HCl 15 ml 0 ml PO NOW ONE Stop: 02/16/22 16:57 Last Admin: 02/16/22 17:16 Dose: 10 ml Documented By: AMU Famotidine (Famotidine 20 Mg/2 Ml Vial) 20 mg IV NOW [facility] Last Admin: 02/16/22 17:16 Dose: 20 mg Documented By: AMU Sodium Chloride (Normal Saline 0.9%) 1,000 mls @ 1,000 mls/hr IV BOLUS ONE Stop: 02/16/22 17:59 Last Infusion: 02/16/22 19:33 Dose: 0 mls/hr Documented By: Admin: 02/16/22 17:16 Dose: 1,000 mls/hr Documented By: AMU Sodium Chloride (Normal Saline 0.9%) 1,000 mls @ 1,000 mls/hr IV BOLUS ONE Stop: 02/16/22 20:32 Last Infusion: 02/16/22 20:25 Dose: 0 mls/hr Documented By: Admin: 02/16/22 19:37 Dose: 1,000 mls/hr Documented By: AMU Vital Signs Vital signs: Vital Signs - 8 hr 02/16/22 16:14 Temperature 97.4 F L Pulse Rate 87 Respiratory Rate 18 Blood Pressure 96/62 Pulse Oximetry 98 Oxygen Delivery Method Room Air MDM - Abdominal Pain <Pancho Guido PA-C - Last Filed: 02/16/22 20:28> Lab Data Attestation: I reviewed the patient's lab results. Lab results narrative: White count 14.8, lactate 3.5. UA negative for UTI Result diagrams: 02/16/22 16:25 02/16/22 16:25 Labs: Lab Results 02/16/22 02/16/22 02/16/22 Range/Units 16:25 16:25 16:25 WBC 14.8 H (4.5-11.0) X10^3/uL RBC 4.46 L (4.5-5.9) X10^6/uL Hgb 14.1 (13.5-17.5) g/dL Hct 42.0 (41-53) % MCV 94.3 (80-100) fL MCH 31.7 (26-34) PG MCHC 33.6 (30-36) % RDW 13.2 (11.6-14.8) % Plt Count 333 (150-400) X10^3/uL Neut % (Auto) 67.4 (50-75) % Lymph % (Auto) 21.6 L (25-40) % [place] % (Auto) 7.5 (3-14) % Eos % (Auto) 2.8 (2-4) % Baso % (Auto) 0.7 (0-2) % Neut # (Auto) 30816 H (8848-3587) /uL Lymph # (Auto) 3200 (8462-6353) /uL [place] # (Auto) 1100 H (0-900) /uL Eos # (Auto) 400 (0-450) /uL Baso # (Auto) 100 (0-100) /uL Sodium 138 (137-145) mmol/L Potassium 4.9 (3.4-5.1) mmol/L Chloride 104 (98-107) mmol/L Carbon Dioxide 22 (22-32) mmol/L BUN 24 H (9-20) mg/dL Creatinine 0.93 (0.66-1.25) mg/dL Estimated GFR > 60 (>60) mL/min BUN/Creatinine Ratio 25.8 H (6-22) Glucose 120 H (80-110) mg/dL Lactate 3.5 H (0.7-2.1) mmol/L Calcium 9.5 (8.4-10.2) mg/dL Total Bilirubin 0.6 (0.2-1.3) mg/dL AST 26 (17-59) IU/L ALT 23 (<50) IU/L Alkaline Phosphatase 63 (38-126) U/L Total Protein 7.4 (6.3-8.2) g/dL Albumin 4.3 (3.5-5.0) g/dL Globulin 3.1 (1.7-4.1) g/dL Albumin/Globulin Ratio 1.4 (1.0-2.8) Lipase 67 (23-300) U/L 02/16/22 Range/Units 19:22 WBC (4.5-11.0) X10^3/uL RBC (4.5-5.9) X10^6/uL Hgb (13.5-17.5) g/dL Hct (41-53) % MCV (80-100) fL MCH (26-34) PG MCHC (30-36) % RDW (11.6-14.8) % Plt Count (150-400) X10^3/uL Neut % (Auto) (50-75) % Lymph % (Auto) (25-40) % [place] % (Auto) (3-14) % Eos % (Auto) (2-4) % Baso % (Auto) (0-2) % Neut # (Auto) (8715-1391) /uL Lymph # (Auto) (0946-5924) /uL [place] # (Auto) (0-900) /uL Eos # (Auto) (0-450) /uL Baso # (Auto) (0-100) /uL Sodium (137-145) mmol/L Potassium (3.4-5.1) mmol/L Chloride (98-107) mmol/L Carbon Dioxide (22-32) mmol/L BUN (9-20) mg/dL Creatinine (0.66-1.25) mg/dL Estimated GFR (>60) mL/min BUN/Creatinine Ratio (6-22) Glucose (80-110) mg/dL Lactate 1.4 (0.7-2.1) mmol/L Calcium (8.4-10.2) mg/dL Total Bilirubin (0.2-1.3) mg/dL AST (17-59) IU/L ALT (<50) IU/L Alkaline Phosphatase (38-126) U/L Total Protein (6.3-8.2) g/dL Albumin (3.5-5.0) g/dL Globulin (1.7-4.1) g/dL Albumin/Globulin Ratio (1.0-2.8) Lipase (23-300) U/L Point of care testing: Urine Dip Bedside Urine Glucose 500 mg/dl Bedside Urine Bilirubin - Negative Bedside Urine Ketone - Negative Urine Specific [place] 1.015 Bedside Urine Occult Blood - Negative Bedside Urine pH 6.0 Bedside Urine Protein - Negative Bedside Urine Urobilinogen 0.2 Bedside Urine Nitrite - Negative Bedside Urine Leukocytes - Negative Esterase Imaging Data US - abdomen: Radiologist's Impression: PROCEDURE: US ABDOMEN LIMITED ? INDICATIONS:? epigastric px ? TECHNIQUE:? Real-time focused scanning was performed of the abdomen, with image doc umentation.? ? COMPARISON:? None. ? FINDINGS:? Overall scan quality is limited, secondary to bowel gas. ? The liver demonstrates normal size. The liver demonstrates generalized mildly increased echogenicity. This decreases ultrasound sensitivity for detection of hepatic masses.? ? No findings of gallstones or sludge are seen.? The gallbladder wall is not thickened, measuring 3 mm or less.? No specific pericholecystic fluid is seen.? The sonographic Arce sign is negative. ? There is no biliary dilatation, the common bile duct measures 4 mm.? ? The pancreas is not seen. ? ? IMPRESSION:? Limited study, without a cause epigastric pain identified. ? The gallbladder demonstrates a normal sonographic appearance. No biliary dilatation is seen. ? ? Dictated by: Sukumar Cedeno M.D. on 02/16/2022 at 17:32 ? ? Approved by: Sukumar Cedeno M.D. on 02/16/2022 at 17:33 ? CT chest abdomen pelvis: Radiologist's Impression: PROCEDURE:? CT CHEST ABD PEL W CON ? INDICATIONS:? Epigastric pain ? TECHNIQUE:? After the administration of intravenous contrast, 5 mm thick sections acquired from the lung apices to the symphysis.? 5 mm coronal and sagittal reformats were performed, with additional 7 mm MIP reformats through the lungs.? For radiation dose reduction, the following was used:? automated exposure control, adjustment of mA and/or kV according to patient size.? ? COMPARISON:? [facility], CT, CT ABDOMEN PELVIS W CON, 02/28/2018, 15:24. ? FINDINGS:? Image quality:? Excellent.? ? CHEST:? Lungs and pleura:? No acute airspace opacities.? There is mild centrilobular emphysema.? Scattered atelectasis in posterior and lateral periphery of bilateral lung silva are seen.? Previously described subtle sub 4 mm peripheral nodules in bilateral lung silva are less well seen on the current study.? A 2 mm solid nodule is seen in posterior lateral left lower lobe series 3, image 140.? No suspicious appearing pulmonary nodule or mass is identified on the current study.? 2 mm calcified granuloma is noted adjacent to lateral pleura of right upper lobe series 3, image 92.? Mild reticular nodular thickening in periphery of bilateral lung silva are noted suggestive of early interstitial pulmonary fibrosis.? No pleural effusions or pneumothorax.? Central and peripheral airways appear patent and normal in caliber.? ? Mediastinum:? Heart size is normal.? No pericardial effusion.? No mediastinal or hilar adenopathy by size criteria.? Thoracic aorta and central pulmonary arteries are normal in size.? Esophagus is normal in caliber.? No hiatal hernia.? ? Chest wall:? No axillary or supraclavicular adenopathy by size criteria.? Thyroid gland is within normal limits.? ? ? ABDOMEN:? Solid organs:? Liver is normal in size and enhancement.? No discrete hepatic lesion is seen.? Mild hepatic steatosis is noted.? Gallbladder is within normal limits.? Biliary system is non dilated.? Pancreas enhances normally.? Spleen is normal in size and enhancement.? No adrenal nodules.? Kidneys demonstrate normal size and enhancement, without hydronephrosis.? ? Peritoneum and bowel:? There is no bowel obstruction.? Questionable gastric wall thickening is seen, no discrete gastric wall mass is noted.? No gross small bowel wall thickening.? No colonic wall thickening or mesenteric fat stranding.? No abscess collection.? Mild fecal stasis in the colon is seen.? Sigmoid diverticulosis is noted without sigmoid colon wall thickening or pericolonic fat stranding.? No free fluid or free air. ? Nodes and vessels:? No retroperitoneal or mesenteric adenopathy by size criteria.? Aorta and inferior vena cava are normal in size.? Moderate atherosclerotic calcifications in abdominal aorta is seen. ? Miscellaneous:? No ventral hernias.? ? ? PELVIS:? Genitourinary:? Bladder wall thickness is normal.? ? Miscellaneous:? No inguinal hernias or adenopathy.? ? Bones:? No suspicious bony lesions.? No vertebral body compression fractures.? Degenerative endplate changes throughout mid to lower thoracic spine and lumbar spine is seen. ? IMPRESSION:? 1. Subtle reticular nodular thickening in periphery of bilateral lung silva and mild centrilobular emphysema.? Finding is concerning for early pulmonary fibrosis.? Previously described sub 4 mm peripheral nodules in bilateral lung silva are less well seen on the current study as described above.? No suspicious appearing pulmonary nodule or mass is identified.? No pleural effusion or pneumothorax.? Airway is patent. 2. No lymphadenopathy is seen in chest, abdomen or pelvis. 3. Suggestion of diffuse gastric wall thickening, gastric wall mass cannot be entirely excluded.? Evaluation is limited due to lack of oral contrast.? GI correlation is recommended. 4. Mild constipation.? No small bowel or colon wall thickening.? No abscess collection.? No free fluid or free air.? Sigmoid diverticulosis without evidence of acute diverticulitis.? 5. Mild hepatic steatosis, no discrete hepatic lesion. 6. Moderate atherosclerotic disease in abdominal aorta.? ? ? Dictated by: Ramiro Khalil M.D. on 02/16/2022 at 16:48 ? ? Approved by: Ramiro Khalil M.D. on 02/16/2022 at 17:05 ? MDM Narrative Medical decision making narrative: 61 yo M with past medical history diabetes, hyperlipidemia, GERD, PTSD presents to the ED with 6 months of epigastric pain. Concern for pancreatitis versus cholecystitis versus PUD versus gastritis versus GERD versus malignancy vs UTI. Will obtain labs, lipase, lactate, CT chest abdomen pelvis, ultrasound abdomen. Will give IV fluids, GI cocktail, pepcid AC. Will reassess. White count elevated to 14.8. Lactate elevated to 3.5. Repeat lactate after fluids 1.4. UA was negative for UTI. CT abdomen pelvis shows possible pulmonary fibrosis, diffuse gastric wall thickening, possible gastric wall mass. No other acute findings. Ultrasound shows no acute findings. White count could likely be due to inflammation versus malignancy. Findings were discussed with patient. Recommend follow-up with pulmonology, GI, PCP for further workup. ED return precautions discussed with patient. Patient verbalized understanding. <Hortencia Welsh, DO - Last Filed: 02/19/22 08:47> Lab Data Labs: Lab Results 02/16/22 02/16/22 02/16/22 Range/Units 16:25 16:25 16:25 WBC 14.8 H (4.5-11.0) X10^3/uL RBC 4.46 L (4.5-5.9) X10^6/uL Hgb 14.1 (13.5-17.5) g/dL Hct 42.0 (41-53) % MCV 94.3 (80-100) fL MCH 31.7 (26-34) PG MCHC 33.6 (30-36) % RDW 13.2 (11.6-14.8) % Plt Count 333 (150-400) X10^3/uL Neut % (Auto) 67.4 (50-75) % Lymph % (Auto) 21.6 L (25-40) % [place] % (Auto) 7.5 (3-14) % Eos % (Auto) 2.8 (2-4) % Baso % (Auto) 0.7 (0-2) % Neut # (Auto) 07265 H (2947-7007) /uL Lymph # (Auto) 3200 (6961-3539) /uL [place] # (Auto) 1100 H (0-900) /uL Eos # (Auto) 400 (0-450) /uL Baso # (Auto) 100 (0-100) /uL Sodium 138 (137-145) mmol/L Potassium 4.9 (3.4-5.1) mmol/L Chloride 104 (98-107) mmol/L Carbon Dioxide 22 (22-32) mmol/L BUN 24 H (9-20) mg/dL Creatinine 0.93 (0.66-1.25) mg/dL Estimated GFR > 60 (>60) mL/min BUN/Creatinine Ratio 25.8 H (6-22) Glucose 120 H (80-110) mg/dL Lactate 3.5 H (0.7-2.1) mmol/L Calcium 9.5 (8.4-10.2) mg/dL Total Bilirubin 0.6 (0.2-1.3) mg/dL AST 26 (17-59) IU/L ALT 23 (<50) IU/L Alkaline Phosphatase 63 (38-126) U/L Total Protein 7.4 (6.3-8.2) g/dL Albumin 4.3 (3.5-5.0) g/dL Globulin 3.1 (1.7-4.1) g/dL Albumin/Globulin Ratio 1.4 (1.0-2.8) Lipase 67 (23-300) U/L 02/16/22 Range/Units 19:22 WBC (4.5-11.0) X10^3/uL RBC (4.5-5.9) X10^6/uL Hgb (13.5-17.5) g/dL Hct (41-53) % MCV (80-100) fL MCH (26-34) PG MCHC (30-36) % RDW (11.6-14.8) % Plt Count (150-400) X10^3/uL Neut % (Auto) (50-75) % Lymph % (Auto) (25-40) % [place] % (Auto) (3-14) % Eos % (Auto) (2-4) % Baso % (Auto) (0-2) % Neut # (Auto) (8713-4477) /uL Lymph # (Auto) (2800-4260) /uL [place] # (Auto) (0-900) /uL Eos # (Auto) (0-450) /uL Baso # (Auto) (0-100) /uL Sodium (137-145) mmol/L Potassium (3.4-5.1) mmol/L Chloride (98-107) mmol/L Carbon Dioxide (22-32) mmol/L BUN (9-20) mg/dL Creatinine (0.66-1.25) mg/dL Estimated GFR (>60) mL/min BUN/Creatinine Ratio (6-22) Glucose (80-110) mg/dL Lactate 1.4 (0.7-2.1) mmol/L Calcium (8.4-10.2) mg/dL Total Bilirubin (0.2-1.3) mg/dL AST (17-59) IU/L ALT (<50) IU/L Alkaline Phosphatase (38-126) U/L Total Protein (6.3-8.2) g/dL Albumin (3.5-5.0) g/dL Globulin (1.7-4.1) g/dL Albumin/Globulin Ratio (1.0-2.8) Lipase (23-300) U/L Point of care testing: Urine Dip Bedside Urine Glucose 500 mg/dl Bedside Urine Bilirubin - Negative Bedside Urine Ketone - Negative Urine Specific [place] 1.015 Bedside Urine Occult Blood - Negative Bedside Urine pH 6.0 Bedside Urine Protein - Negative Bedside Urine Urobilinogen 0.2 Bedside Urine Nitrite - Negative Bedside Urine Leukocytes - Negative Esterase Discharge Plan Departure Patient Disposition: Home Clinical Impression: Abdominal pain Instructions: DI for Abdominal Pain-Adult Activity Restrictions/Additional Instructions: You were evaluated in the ED for abdominal pain, 45 lb weight loss over the last [address] abdomen pelvis did not show any emergent findings today, however there was a suggestion of possible mass in the stomach which could not be completely visualized on today's scan. You white count was elevated to 14.8 today, however there was no source of infection identified. Please follow-up with your PCP to further workup and evaluate your abdominal pain. Recommend GI consultation well. CT also shows possible pulmonary fibrosis. Recommend follow up with pulmonology. Return to the ED if you have worsening abdominal pain, uncontrollable vomiting, fever, chills. Prescriptions: No Action methocarbamol 750 mg tablet 750 mg PO TID PRN (Reason: muscle spasm) Qty: 20 0RF hydrocodone-acetaminophen 5-325 mg tablet 1 tab PO Q6H PRN (Reason: pain) Qty: 10 0RF simvastatin 20 mg tablet 10 mg PO BEDTIME sitagliptin-metformin [Janumet] 50-1,000 mg tablet 1 tab PO BID ondansetron 4 mg tablet,disintegrating 4 mg PO TID PRN (Reason: nausea and vomiting) Qty: 9 0RF triamcinolone acetonide 0.025 % Cream 1 applic TOPICAL BID PRN (Reason: itching or rash) omeprazole 20 mg Capsule,Delayed Release(Dr/Ec) 20 mg PO DAILY ammonium lactate 12 % Cream 1 applic TOPICAL [id number] ketoconazole 2 % Cream 1 applic TOPICAL DAILY Label Comments: shoulders and thighs sulindac 200 mg Tablet 200 mg PO BID prazosin 2 mg Capsule 2 mg PO BEDTIME quetiapine 400 mg Tablet 200 mg PO BEDTIME cholecalciferol (vitamin D3) [Vitamin D3] 1,000 unit Tablet 1,000 unit PO DAILY Visit Report Forms: Patient Portal/API <Hortencia Welsh DO - Last Filed: 02/19/22 08:47> Cosign ED Attending Cossisiature Attestation: I was immediately available in the department for consultation. Documentation has been reviewed. I agree with assessment and plan.
--- NOTE | 2022-02-16 16:54 | DI.CT.S_ITS ---
PROCEDURE: CT CHEST ABD PEL W CON INDICATIONS: Epigastric pain TECHNIQUE: After the administration of intravenous contrast, 5 mm thick sections acquired from the lung apices to the symphysis. 5 mm coronal and sagittal reformats were performed, with additional 7 mm MIP reformats through the lungs. For radiation dose reduction, the following was used: automated exposure control, adjustment of mA and/or kV according to patient size. COMPARISON: [facility], CT, CT ABDOMEN PELVIS W CON, 02/28/2018, 15:24. FINDINGS: Image quality: Excellent. CHEST: Lungs and pleura: No acute airspace opacities. There is mild centrilobular emphysema. Scattered atelectasis in posterior and lateral periphery of bilateral lung silva are seen. Previously described subtle sub 4 mm peripheral nodules in bilateral lung silva are less well seen on the current study. A 2 mm solid nodule is seen in posterior lateral left lower lobe series 3, image 140. No suspicious appearing pulmonary nodule or mass is identified on the current study. 2 mm calcified granuloma is noted adjacent to lateral pleura of right upper lobe series 3, image 92. Mild reticular nodular thickening in periphery of bilateral lung silva are noted suggestive of early interstitial pulmonary fibrosis. No pleural effusions or pneumothorax. Central and peripheral airways appear patent and normal in caliber. Mediastinum: Heart size is normal. No pericardial effusion. No mediastinal or hilar adenopathy by size criteria. Thoracic aorta and central pulmonary arteries are normal in size. Esophagus is normal in caliber. No hiatal hernia. Chest wall: No axillary or supraclavicular adenopathy by size criteria. Thyroid gland is within normal limits. ABDOMEN: Solid organs: Liver is normal in size and enhancement. No discrete hepatic lesion is seen. Mild hepatic steatosis is noted. Gallbladder is within normal limits. Biliary system is non dilated. Pancreas enhances normally. Spleen is normal in size and enhancement. No adrenal nodules. Kidneys demonstrate normal size and enhancement, without hydronephrosis. Peritoneum and bowel: There is no bowel obstruction. Questionable gastric wall thickening is seen, no discrete gastric wall mass is noted. No gross small bowel wall thickening. No colonic wall thickening or mesenteric fat stranding. No abscess collection. Mild fecal stasis in the colon is seen. Sigmoid diverticulosis is noted without sigmoid colon wall thickening or pericolonic fat stranding. No free fluid or free air. Nodes and vessels: No retroperitoneal or mesenteric adenopathy by size criteria. Aorta and inferior vena cava are normal in size. Moderate atherosclerotic calcifications in abdominal aorta is seen. Miscellaneous: No ventral hernias. PELVIS: Genitourinary: Bladder wall thickness is normal. Miscellaneous: No inguinal hernias or adenopathy. Bones: No suspicious bony lesions. No vertebral body compression fractures. Degenerative endplate changes throughout mid to lower thoracic spine and lumbar spine is seen. IMPRESSION: 1. Subtle reticular nodular thickening in periphery of bilateral lung silva and mild centrilobular emphysema. Finding is concerning for early pulmonary fibrosis. Previously described sub 4 mm peripheral nodules in bilateral lung silva are less well seen on the current study as described above. No suspicious appearing pulmonary nodule or mass is identified. No pleural effusion or pneumothorax. Airway is patent. 2. No lymphadenopathy is seen in chest, abdomen or pelvis. 3. Suggestion of diffuse gastric wall thickening, gastric wall mass cannot be entirely excluded. Evaluation is limited due to lack of oral contrast. GI correlation is recommended. 4. Mild constipation. No small bowel or colon wall thickening. No abscess collection. No free fluid or free air. Sigmoid diverticulosis without evidence of acute diverticulitis. 5. Mild hepatic steatosis, no discrete hepatic lesion. 6. Moderate atherosclerotic disease in abdominal aorta. Dictated by: Ramiro Khalil M.D. on 02/16/2022 at 16:48 Approved by: Ramiro Khalil M.D. on 02/16/2022 at 17:05
--- NOTE | 2022-02-16 16:55 | DI.US.S_ITS ---
PROCEDURE: US ABDOMEN LIMITED INDICATIONS: epigastric px TECHNIQUE: Real-time focused scanning was performed of the abdomen, with image documentation. COMPARISON: None. FINDINGS: Overall scan quality is limited, secondary to bowel gas. The liver demonstrates normal size. The liver demonstrates generalized mildly increased echogenicity. This decreases ultrasound sensitivity for detection of hepatic masses. No findings of gallstones or sludge are seen. The gallbladder wall is not thickened, measuring 3 mm or less. No specific pericholecystic fluid is seen. The sonographic Arce sign is negative. There is no biliary dilatation, the common bile duct measures 4 mm. The pancreas is not seen. IMPRESSION: Limited study, without a cause epigastric pain identified. The gallbladder demonstrates a normal sonographic appearance. No biliary dilatation is seen. Dictated by: Sukumar Cedeno M.D. on 02/16/2022 at 17:32 Approved by: Sukumar Cedeno M.D. on 02/16/2022 at 17:33
[2022-02-16 17:08] LABS: Add Manual Diff / Slide Review NO; Basophils Absolute Auto 100 /uL (0-100); Basophils Percent Auto 0.7 % (0-2); Eosinophils Absolute Auto 400 /uL (0-450); Eosinophils Percent Auto 2.8 % (2-4); Hemoglobin 14.1 g/dL (13.5-17.5); Lymphocytes Absolute Auto 3200 /uL (1100-4500); Lymphocytes Percent Auto 21.6 % (25-40); Mean Corpuscular HGB Conc 33.6 % (30-36); Mean Corpuscular Hemoglobin 31.7 PG (26-34); Mean Corpuscular Volume 94.3 fL (80-100); Monocytes Absolute Auto 1100 /uL (0-900); Monocytes Percent Auto 7.5 % (3-14); Neutrophils Absolute Auto 10000 /uL (1500-7000); Neutrophils Percent Auto 67.4 % (50-75); Platelet Count 333 X10^3/uL (150-400); Red Blood Cell Count 4.46 X10^6/uL (4.5-5.9); Red Cell Distribution Width 13.2 % (11.6-14.8); White Blood Cell Count 14.8 X10^3/uL (4.5-11.0)
[2022-02-16] MEDS: FAMOTIDINE 20 MG/2 ML VIAL IV (17:16)
[2022-02-16] MEDS: MAG HYDROX/ALUMINUM/SIMETH SUS 20 ML, LIDOCAINE VISCOUS 2% 15 ML PO (17:16)
[2022-02-16] MEDS: SODIUM CHLORIDE 0.9% 1,000 ML 1000 ML IV ×2 (17:16→19:37)
[2022-02-16 17:23] LABS: Alanine Aminotransferase 23 IU/L (<50); Albumin 4.3 g/dL (3.5-5.0); Albumin Globulin Ratio 1.4 (1.0-2.8); Alkaline Phosphatase 63 U/L (38-126); Aspartate Aminotransferase 26 IU/L (17-59); BUN Creatinine Ratio 25.8 (6-22); Bilirubin Total 0.6 mg/dL (0.2-1.3); Blood Urea Nitrogen 24 mg/dL (9-20); Calcium 9.5 mg/dL (8.4-10.2); Carbon Dioxide 22 mmol/L (22-32); Chloride 104 mmol/L (98-107); Estimated Glomerular Filt Rate > 60 mL/min (>60); Globulin 3.1 g/dL (1.7-4.1); Glucose 120 mg/dL (80-110); HEMOLYSIS < 15 (0-50); Lipase 67 U/L (23-300); Potassium 4.9 mmol/L (3.4-5.1); Sodium 138 mmol/L (137-145); Total Protein 7.4 g/dL (6.3-8.2)
[2022-02-16 17:24] LABS: Lactate (Lactic Acid) 3.5 mmol/L (0.7-2.1)
[2022-02-16 19:02] LABS: Reflexed Lactate in 2 Hours Y
[2022-02-16 19:49] LABS: Lactate 2HR (Lactic Acid Rflx) 1.4 mmol/L (0.7-2.1)
== END 2022-02-16 20:34 | disposition home or self-care (01) ==
PROVIDERS: Emergency Provider Student in an Organized Health Care Education/Training Program
DX: R10.13 Epigastric pain (principal); R11.0 Nausea; R79.89 Other specified abnormal findings of blood chemistry
CPT/HCPCS: 36415; 71260; 74177; 76705; 80053; 81003; 83605; 83690; 85025; 93005; 96361; 96374; 99284; Q9967

== ENCOUNTER → 2022-05-25 10:59 | Outpatient (CLI) | payer MEDICARE, OTHER, SELFPAY ==
[2022-05-25 12:37] LABS: COVID19 -Nasal RAPID Negative (Negative)
== END ==
PROVIDERS: Visit Provider Surgery
DX: Z20.822 Contact with and (suspected) exposure to COVID-19 (principal); Z01.812 Encounter for preprocedural laboratory examination
CPT/HCPCS: 87635; C9803

== ENCOUNTER 2022-05-26 09:02 | Day surgery (SDC) | payer MEDICARE, OTHER, SELFPAY ==
--- NOTE | 2022-05-26 07:54 | PM.HP.1 ---
History of Present Illness History of Present Illness Date Patient Seen: 05/26/22 Chief complaint: SDC Narrative: History of adenomatous colon polyps Patient History Medical History Type 2 diabetes mellitus Family & Social History Tobacco & Substance use: Smoking Status Current every day smoker alcohol intake frequency 0-2 drinks per day Substance Use Type does not use Meds Home Medications and Allergies Home Medications Medication Instructions Recorded Confirmed Type ondansetron 4 mg disintegrating 4 mg PO TID PRN nausea and 02/28/18 03/02/18 Rx tablet vomiting #9 tabs simvastatin 20 mg tablet 10 mg PO BEDTIME 02/28/18 03/02/18 History sitagliptin 50 mg-metformin 1,000 1 tab PO BID 02/28/18 02/28/18 History mg tablet ammonium lactate 12 % topical cream 1 applic topical [id number] 03/02/18 03/02/18 History cholecalciferol (vitamin D3) 25 1,000 unit PO DAILY 03/02/18 03/02/18 History mcg (1,000 unit) tablet (Vitamin D3) ketoconazole 2 % topical cream 1 applic topical DAILY 03/02/18 03/02/18 History omeprazole 20 mg capsule,delayed 20 mg PO DAILY 03/02/18 03/02/18 History release prazosin 2 mg capsule 2 mg PO BEDTIME 03/02/18 03/02/18 History quetiapine 400 mg tablet 200 mg PO BEDTIME 03/02/18 03/02/18 History sulindac 200 mg tablet 200 mg PO BID 03/02/18 03/02/18 History triamcinolone acetonide 0.025 % 1 applic topical BID PRN itching 03/02/18 03/02/18 History topical cream or rash hydrocodone 5 mg-acetaminophen 325 1 tab PO Q6H PRN pain #10 tabs 05/01/21 Rx mg tablet methocarbamol 750 mg tablet 750 mg PO TID PRN muscle spasm #20 05/01/21 Rx tabs Allergies Allergy/AdvReac Type Severity Reaction Status Date / Time meperidine [From Demerol] Allergy Severe Anaphylaxis Verified 05/01/21 14:58 Exam Narrative Exam Narrative: Oropharynx free of lesions Chest clear to auscultation and percussion Cardiac exam reveals no S3 or murmur Assessment & Plan Assessment & Plan narrative: History of adenomatous colon polyps need for follow-up colonoscopy. Risks, benefits, alternatives have been explained. Time Spent With Patient Critical Care time: I spent a total of [] minutes of critical care time on this patient's care today; this time is exclusive of procedural time.
--- NOTE | 2022-05-26 07:56 | PM.OP.COLON ---
Operative Date/Time/Diagnoses Date of procedure: 05/26/22 Pre-op diagnosis: See indication and findings Procedure & Clinicians Study performed: Colonoscopy Indications: History of substantial unintentional weight loss with negative EGD and very distant history of adenomatous colon polyps Surgeon: Karl Lee Procedure Notes Procedure in detail: After informed consent was obtained patient was placed in the left lateral decubitus position. The video colonoscope was introduced to the rectum slowly advanced to the cecum. Preparation was good. On slow withdrawal mucosa was carefully examined. The scope was removed. The patient tolerated procedure well. Blood loss none Complications none Sedation propofol Findings 1. Only fair prep at best. Procedure continued due to the the desire to rule out large lesions that might be contributing to weight loss. 2. Otherwise negative colonoscopy to cecum I would suggest follow-up colonoscopy within 1 year as this is not adequate to detect polyps. As long as he has no further weight loss he does not need follow-up with GI but should symptoms continue he should follow-up.
[2022-05-26 09:41] VITALS: BP 130/83; PULSE 73; RESP 16; TEMP 36.3; O2SAT 99; BMI 24.9
[2022-05-26] MEDS: SODIUM CHLORIDE 0.9% 1,000 ML 84 ML IV (09:55)
[2022-05-26 10:47] VITALS: BP 101/62; PULSE 74; RESP 17; TEMP 36.2; O2SAT 98
[2022-05-26 10:52] VITALS: BP 102/60; PULSE 74; RESP 13; O2SAT 97
[2022-05-26 10:57] VITALS: BP 120/74; PULSE 71; RESP 22; TEMP 36.2; O2SAT 99
[2022-05-26 11:02] VITALS: BP 130/73; PULSE 67; RESP 15; O2SAT 99
[2022-05-26 11:07] VITALS: BP 134/73; PULSE 65; RESP 17; TEMP 36.2; O2SAT 99
== END 2022-05-26 11:23 | disposition home or self-care (01) ==
PROVIDERS: Referring Provider Internal Medicine Gastroenterology; Visit Provider Internal Medicine Gastroenterology
PROC: 0DJD8ZZ Inspection of Lower Intestinal Tract, Via Natural or Artificial Opening Endoscopic (ICD-10-PCS; CPT 45378; principal; 2022-05-26 08:00)
DX: Z12.11 Encounter for screening for malignant neoplasm of colon (principal); Z86.010 Personal history of colon polyps; R63.4 Abnormal weight loss; E11.9 Type 2 diabetes mellitus without complications; F17.210 Nicotine dependence, cigarettes, uncomplicated; Z68.25 Body mass index [BMI] 25.0-25.9, adult
CPT/HCPCS: G0105; 82962; J2704

== ENCOUNTER → 2022-06-21 16:13 | Outpatient (CLI) | payer MEDICARE, OTHER, SELFPAY ==
--- NOTE | 2022-06-21 | DI.MRI.S_ITS ---
PROCEDURE: MR CERVICAL SPINE WO CON INDICATIONS: spinal stenosis, cervical region TECHNIQUE: Noncontrast sagittal T1 spin echo and T2 fast spin echo, sagittal STIR, foraminal oblique sagittal T2 fast spin echo, and axial gradient echo or T2 fast spin echo through the cervical spine. COMPARISON: [facility], MR, MR CERVICAL SPINE WO CON, 04/13/2019, 15:56. FINDINGS: Image quality: Excellent. Alignment and Curvature: There is normal bony alignment. Bone Marrow: Marrow demonstrates normal overall signal. Spinal Cord: Visualized spinal cord has normal size and signal. No cerebellar tonsillar herniation. Paraspinous Soft Tissues: No paravertebral masses. Prevertebral soft tissues are normal in thickness. C2-C3: Normal appearance. C3-C4: At C3-C4 there is a small to moderate size diffuse disc spur complex causing moderate to severe bilateral neural foraminal stenosis and moderate central canal stenosis. C4-C5: At C4-C5 there is a moderate size diffuse disc spur complex causing severe bilateral neural foraminal stenosis and moderate to severe central canal stenosis. C5-C6: At C5-C6 there is a [id number] diffuse disc spur complex causing severe bilateral neural foraminal stenosis and moderate to severe central canal stenosis. C6-C7: At C6-C7 there is a moderate-sized broad-based disc protrusion causing severe bilateral neural foraminal stenosis and moderate to severe central canal stenosis C7-T1: Normal appearance. IMPRESSION: 1. Degenerative changes noted throughout the patient's cervical spine from C3-C4 through C6-C7 as described above on a level by level basis. 2. The degree of degenerative change appears to have mildly worsened from prior examination of 04/13/2019. Dictated by: Manuel Ibarra M.D. on 06/21/2022 at 17:19 Approved by: Manuel Ibarra M.D. on 06/21/2022 at 17:25
== END ==
PROVIDERS: Referring Provider Physical Medicine & Rehabilitation; Visit Provider Physical Medicine & Rehabilitation
DX: M48.02 Spinal stenosis, cervical region (principal); M47.812 Spondylosis without myelopathy or radiculopathy, cervical region
CPT/HCPCS: 72141

== ENCOUNTER 2023-01-27 19:29 | Emergency (ER) | payer MEDICARE, OTHER, SELFPAY ==
[2023-01-27 19:47] VITALS: BP 130/67; PULSE 97; RESP 18; TEMP 36.9; O2SAT 93; BMI 25.0
--- NOTE | 2023-01-27 21:14 | PC.NURSE ---
patient had surgery 3 days ago on his neck and on pain medication. He states that he feels that he is having mucous that he can't get out because he can't cough without pain in his throat and back.
[2023-01-27 21:21] VITALS: PULSE 87; RESP 14; O2SAT 96
--- NOTE | 2023-01-27 22:43 | ED.GENADULT ---
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 Patient is status post cervical neck surgery postop day 3 from [facility] with Dr. Cates. States he is had a lot of pain since the surgery. Has ongoing left arm tingling which was expected after the surgery according to patient and . Home O2 88% according to prior to arrival. feels patient needs respiratory therapy eval for flutter valve therapy. He did have it here and has significant improvement to 96% from 93%. Patient states he does feel better after using the flutter valve. Otherwise no shortness of breath. Patient in no distress. Related Data Home Medications Medication Instructions Recorded Confirmed simvastatin 20 mg tablet 10 mg PO BEDTIME 02/28/18 06/21/22 sitagliptin phosphate 50 1 tab PO BID 02/28/18 06/21/22 mg-metformin 1,000 mg tablet ammonium lactate 12 % topical cream 1 applic topical [id number] PRN Rash 03/02/18 06/21/22 cholecalciferol (vitamin D3) 25 1,000 unit PO DAILY 03/02/18 06/21/22 mcg (1,000 unit) tablet (Vitamin D3) ketoconazole 2 % topical cream 1 applic topical DAILY PRN Rash 03/02/18 06/21/22 omeprazole 20 mg capsule,delayed 20 mg PO DAILY 03/02/18 06/21/22 release prazosin 2 mg capsule 2 mg PO BEDTIME 03/02/18 06/21/22 quetiapine 400 mg tablet 200 mg PO BEDTIME 03/02/18 06/21/22 triamcinolone acetonide 0.025 % 1 applic topical BID PRN itching 03/02/18 06/21/22 topical cream or rash Previous Rx's Medication Instructions Recorded amoxicillin 875 mg-potassium 1 tab PO BID #20 tabs 06/21/22 clavulanate 125 mg tablet Allergies Allergy/AdvReac Type Severity Reaction Status Date / Time meperidine [From Demerol] Allergy Severe Anaphylaxis Verified 01/27/23 19:53 Review of Systems Review of Systems Narrative: GENERAL: negative chills, fatigue, malaise, fever, sweats. HEENT: negative sinus pain, ear pain, sore throat RESPIRATORY: negative dyspnea, positive cough CARDIOVASCULAR: negative chest pain, palpitations GASTROINTESTINAL: negative nausea, vomiting, abdominal pain : negative dysuria, frequency, hematuria MUSCULOSKELETAL: negative muscle or bony pain SKIN: negative rash, skin lesions NEUROLOGIC: negative weakness, numbness ROS Unobtainable: All systems reviewed & are unremarkable except as noted in HPI and below Patient History Medical History Abnormal findings on esophagogastroduodenoscopy (EGD) (~02/15/22) HTN (hypertension) Hyperlipidemia PTSD (post-traumatic stress disorder) Type 2 diabetes mellitus Weight loss, non-intentional (~11/15/21) Social History household members: spouse Smoking Status: Current every day smoker Smoking Status: Current every day smoker alcohol intake frequency: holidays/special occasions only Substance Use Type: does not use Exam Narrative Exam Narrative: GENERAL: in no distress, not toxic not dyspneic HEAD: Normocephalic. EYES: Pupils equal round ENT: Mucous membranes moist. NECK: Trachea midline. No stridor. CARDIOVASCULAR: Regular rate and rhythm without murmurs RESPIRATORY: Clear to auscultation. Breath sounds equal bilaterally. No wheezes, rales, or rhonchi. No accessory neck muscle use. Patient is speaking full sentences. No respiratory distress NEURO: AOx4. SKIN: Warm and dry PSYCH: Not anxious, is cooperative Initial Vital Signs Initial Vital Signs: Vital Signs Temperature 98.5 F 01/27/23 19:47 Pulse Rate 97 H 01/27/23 19:47 Respiratory Rate 18 01/27/23 19:47 Blood Pressure 130/67 01/27/23 19:47 Pulse Oximetry 93 01/27/23 19:47 Oxygen Delivery Method Room Air 01/27/23 19:47 Course Orders Ordered: ED Orders 01/27/23 21:20 RT Consult Eval and Treat NOW Discontinued Medications Diazepam (Diazepam 5 Mg Tablet) 5 mg PO NOW ONE Stop: 01/27/23 22:42 Last Admin: 01/27/23 22:44 Dose: 5 mg Documented By: SEFERINO Oxycodone/Acetaminophen (Oxycodone/Acetaminophen 5/325 Tablet) 1 tab PO NOW ONE Stop: 01/27/23 22:40 Last Admin: 01/27/23 22:44 Dose: 1 tab Documented By: SEFERINO Vital Signs Vital signs: Vital Signs - 8 hr 01/27/23 19:47 01/27/23 21:21 01/27/23 22:58 Temperature 98.5 F Pulse Rate 97 H 87 94 H Respiratory Rate 18 14 12 Blood Pressure 130/67 132/68 Pulse Oximetry 93 96 96 Oxygen Delivery Method Room Air Room Air Room Air Medical Decision Making MDM Narrative Medical decision making narrative: 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 Patient is status post cervical neck surgery postop day 3 from [facility] with Dr. Cates. States he is had a lot of pain since the surgery. Has ongoing left arm tingling which was expected after the surgery according to patient and . Home O2 88% according to prior to arrival. feels patient needs respiratory therapy eval for flutter valve therapy. He did have it here and has significant improvement to 96% from 93%. Patient states he does feel better after using the flutter valve. Otherwise no shortness of breath. Patient in no distress. After history and exam respiratory therapy evaluation treatment with flutter valve [facility] CC: Postoperative neck pain/hypoxia Complicating co-morbidities: Recent neck surgery Data collected from: Patient and Medical records reviewed: No recent visit for this complaint Differential considered: Includes but not limited to postoperative pain/postop edema of the neck. Exam documented above, pertinent findings include: Patient is speaking full sentences with clear lung sounds no stridor. Treatments: Respiratory therapist for flutter valve treatment and training Re-evaluations: 10:45 p.m.. Patient feeling much better after flutter valve treatment. 96% room air. Speaking full sentences. Does need his home pain medications Valium and oxycodone. does not want any imaging or blood work done. Patient is much better after flutter valve treatment Discussion: Appropriate for discharge home. Patient improved with flutter valve treatment. He will take this home and continue every 2 hours while awake. He will follow up with his family doctor as well as surgeon this week for re-evaluation. Return precautions reviewed. They desire discharge home. The hypoxia home likely due to possible poor mobility secretions. At this time I do not feel this is pneumonia or aspiration pneumonia. No fever. Has clear lung sounds bilaterally. Diagnosis: Postoperative pain Discharge Plan Departure Patient Disposition: Home Clinical Impression: Acute postoperative pain Instructions: DI for Postoperative Pain Activity Restrictions/Additional Instructions: Please use flutter valve treatment every 2 hours while awake. Please do try to quit smoking. May continue home pain medications. Please see your surgeon as scheduled. Return if worse if any questions or concerns if any trouble breathing. Prescriptions: No Action amoxicillin-pot clavulanate 875-125 mg tablet 1 tab PO BID Qty: 20 0RF simvastatin 20 mg tablet 10 mg PO BEDTIME sitagliptin phos-metformin 50-1,000 mg tablet 1 tab PO BID triamcinolone acetonide 0.025 % Cream 1 applic TOPICAL BID PRN (Reason: itching or rash) omeprazole 20 mg Capsule,Delayed Release(Dr/Ec) 20 mg PO DAILY ammonium lactate 12 % Cream 1 applic TOPICAL [id number] PRN (Reason: Rash) ketoconazole 2 % Cream 1 applic TOPICAL DAILY PRN (Reason: Rash) Patient Comments: shoulders and thighs prazosin 2 mg Capsule 2 mg PO BEDTIME quetiapine 400 mg Tablet 200 mg PO BEDTIME cholecalciferol (vitamin D3) [Vitamin D3] 1,000 unit Tablet 1,000 unit PO DAILY Referrals: ProviderDanae [Primary Care Provider] - Stand Alone Forms: Patient Portal/API
[2023-01-27] MEDS: OXYCODONE/ACETAMINOPHEN 5/325 TABLET 1 TAB PO (22:44)
[2023-01-27] MEDS: diazePAM 5 MG TABLET PO (22:44)
[2023-01-27 22:58] VITALS: BP 132/68; PULSE 94; RESP 12; O2SAT 96
== END 2023-01-27 23:02 | disposition home or self-care (01) ==
PROVIDERS: Emergency Provider Emergency Medicine
DX: G89.18 Other acute postprocedural pain (principal); R09.02 Hypoxemia
CPT/HCPCS: 99283

== ENCOUNTER → 2023-08-08 11:43 | Outpatient (CLI) | payer MEDICARE, OTHER, SELFPAY ==
--- NOTE | 2023-08-08 11:45 | DI.MRI.S_ITS ---
PROCEDURE: MR SHOULDER RT WO CON INDICATIONS: ADHESIVE CAPSULITIS OF RT SHOULDER TECHNIQUE: Noncontrast oblique coronal T2 fast spin echo with fat saturation, oblique sagittal T1 spin echo and T2 fast spin echo with fat saturation, axial T1 spin echo and T2 fast spin echo with fat saturation through the shoulder. COMPARISON: [facility], MR, MR SHOULDER RT WO CON, 04/13/2019, 15:35. FINDINGS: Image quality: Excellent. Rotator cuff: Low-grade articular and bursal surface partial thickness tear involving supraspinatus at its insertion on the humeral head is seen extending to musculotendinous junction. Distal infraspinatus and subscapularis tendinosis is seen. No full-thickness rotator cuff tendon rupture. Sagittal images demonstrate mild to moderate supraspinatus muscle atrophy. Bones and bursae: No bone marrow contusions or fractures. Moderate acromioclavicular joint osteoarthritic changes are seen with joint space narrowing and downward osteophyte formation depressing the musculotendinous junction of supraspinatus. The acromion demonstrates conventional anatomy, without an os acromiale. Small amount of subacromial subdeltoid bursal fluid is present. No gross loose bodies. Capsule and soft tissues: Labrum is grossly intact. The long head of the biceps tendon demonstrates normal location and morphology. The rotator interval appears normal, without fibrosis. The coracohumeral ligament is normal in thickness. IMPRESSION: 1. Tendinosis and low-grade articular and bursal surface partial thickness tear involving distal supraspinatus extending to musculotendinous junction. Distal infraspinatus and subscapularis tendinosis. No full-thickness rotator cuff tendon rupture. Mild to moderate supraspinatus muscle atrophy. 2. Moderate acromioclavicular joint osteoarthritis. No fracture or dislocation. Small amount of subacromial subdeltoid bursal fluid, no gross loose bodies. 3. No evidence of focal labral tear. Dictated by: Ramiro Khalil M.D. on 08/08/2023 at 15:33 Approved by: Ramiro Khalil M.D. on 08/08/2023 at 15:47
== END ==
PROVIDERS: Referring Provider Orthopaedic Surgery; Visit Provider Orthopaedic Surgery
DX: M75.111 Incomplete rotator cuff tear or rupture of right shoulder, not specified as traumatic (principal); M75.01 Adhesive capsulitis of right shoulder; M19.011 Primary osteoarthritis, right shoulder
CPT/HCPCS: 73221

== ENCOUNTER → 2023-11-03 10:59 | Outpatient (CLI) | payer MEDICARE, OTHER, SELFPAY ==
--- NOTE | 2023-11-03 11:01 | DI.MRI.S_ITS ---
PROCEDURE: MR CERVICAL SPINE WO/W CON INDICATIONS: Paresthesia of skin TECHNIQUE: Noncontrast sagittal T1 spin echo and T2 fast spin echo, sagittal STIR, sagittal PD fast spin echo, foraminal oblique sagittal T2 fast spin echo, axial gradient echo or T2 fast spin echo through the cervical spine. After the administration of contrast, sagittal and axial T1 spin echo with fat saturation through the cervical spine. COMPARISON: [facility], MR, MR CERVICAL SPINE WO CON, 06/21/2022, 16:30. [facility], CT, CT CERVICAL SPINE WITHOUT CONTRAST, 02/22/2023, 13:39. [facility], CR, XR CERVICAL SPINE 2 OR 3 VIEWS, 09/07/2023, 13:03. FINDINGS: Alignment and curvature: There is normal bony alignment. Marrow: C3-4, C4-5, C5-6 and C6-7 anterior cervical discectomy and fusion with low profile anterior plate and screw instrumentation as well as associated facet instrumented ankylosis. Spinal cord: Visualized spinal cord is normal in size, without white matter lesions. No suspicious intramedullary enhancement. No cerebellar tonsillar herniation. Paraspinous soft tissues: No paravertebral masses or suspicious enhancement. C2-C3: Normal appearance. C3-C4: Discectomy and fusion. Mild central stenosis. Facet instrumentation on the right obscures the foramen. No foraminal stenosis on the left C4-C5: Discectomy and fusion. No central or foraminal stenosis. C5-C6: Discectomy and fusion. Mild central stenosis. Uncovertebral hypertrophy results in mild right foraminal stenosis. Left foramen is obscured by artifact from facet hardware. C6-C7: Discectomy and fusion. No central or foraminal stenosis. C7-T1: Normal appearance. IMPRESSION: Instrumented C3 through C7 discectomy and fusion associated with low profile anterior hardware and multilevel facet instrumented ankylosis. Mild residual central stenosis C3-4 and C5-6, similar to the prior CT Approved by: Mitul Licona M.D. on 11/03/2023 at 15:42
== END ==
PROVIDERS: Referring Provider Psychiatry & Neurology Neurology; Visit Provider Psychiatry & Neurology Neurology
DX: M48.02 Spinal stenosis, cervical region (principal); R20.2 Paresthesia of skin; Z98.1 Arthrodesis status
CPT/HCPCS: 72156; A9579

== ENCOUNTER 2024-04-29 18:18 | Emergency (ER) | payer MEDICARE, OTHER, SELFPAY ==
[2024-04-29 18:34] VITALS: BP 112/57; PULSE 74; RESP 18; TEMP 36.9; O2SAT 97; BMI 24.3
--- NOTE | 2024-04-29 18:41 | DI.RAD.S_ITS ---
PROCEDURE: XR HAND LT MIN 3V INDICATIONS: Several Dog bites on bilateral hands TECHNIQUE: 3 views of the hand(s) acquired. COMPARISON: None. FINDINGS: Bones: No fractures or dislocations. Carpal bones are normally aligned. No suspicious bony lesions. Soft tissues: No suspicious soft tissue calcifications. No foreign body or soft tissue gas. IMPRESSION: No fracture, foreign body, or soft tissue gas. Dictated by: Mai Singh M.D. on 04/29/2024 at 19:14 Approved by: Mai Singh M.D. on 04/29/2024 at 19:15
--- NOTE | 2024-04-29 18:41 | DI.RAD.S_ITS ---
PROCEDURE: XR HAND RT MIN 3V INDICATIONS: Several Dog bites on bilateral hands TECHNIQUE: 3 views of the hand(s) acquired. COMPARISON: None. FINDINGS: Bones: Minimally comminuted 5th distal phalanx tuft fracture. No dislocation. Incidental note of scattered periarticular erosive change. Carpal bones are normally aligned. No suspicious bony lesions. Soft tissues: No suspicious soft tissue calcifications. No foreign bodies or soft tissue gas. IMPRESSION: Fifth distal tuft fracture. No underlying foreign body. Incidental note of possible early inflammatory arthritic change. Clinical correlation recommended. Dictated by: Mai Singh M.D. on 04/29/2024 at 19:15 Approved by: Mai Singh M.D. on 04/29/2024 at 19:17
[2024-04-29 18:49] VITALS: BP 113/58; PULSE 74; O2SAT 98
[2024-04-29 19:00] VITALS: BP 113/55; PULSE 71; O2SAT 97
[2024-04-29 19:08] VITALS: BP 120/62; PULSE 75; RESP 18; O2SAT 98
--- NOTE | 2024-04-29 19:18 | PC.NURSE ---
Pt ambulatory to and from imaging without difficulty or assistance. Pt sitting in ED stretcher awake and alert, in no obvious distress speaking with female inductor tester at this time.
[2024-04-29] MEDS: AMOXICILLIN/CLAV 875/125 MG 1 TAB PO (19:42)
[2024-04-29] MEDS: ACETAMINOPHEN 325 MG TABLET 650 MG PO (19:43)
--- NOTE | 2024-04-29 19:45 | ED_ITS ---
HPI - Animal Bite General Chief Complaint: Animal Bite Stated Complaint: attacked by dog Time Seen by Provider: 04/29/24 19:03 Source: patient Mode of arrival: Ambulatory History of Present Illness HPI narrative: Patient is a 63-year-old male history of diabetes presenting today with dog bite to both hands. Reports that a neighborhood dog who had never seen before was initially nice and then turned and bit him. He was bit on both hands about 10 times. He is able to move all fingers but has multiple puncture wounds on the dorsal side Related Data Home Medications Medication Instructions Recorded Confirmed simvastatin 20 mg tablet 10 mg PO BEDTIME 02/28/18 06/21/22 sitagliptin phosphate 50 1 tab PO BID 02/28/18 06/21/22 mg-metformin 1,000 mg tablet ammonium lactate 12 % topical cream 1 applic topical [id number] PRN Rash 03/02/18 06/21/22 cholecalciferol (vitamin D3) 25 1,000 unit PO DAILY 03/02/18 06/21/22 mcg (1,000 unit) tablet (Vitamin D3) ketoconazole 2 % topical cream 1 applic topical DAILY PRN Rash 03/02/18 06/21/22 omeprazole 20 mg capsule,delayed 20 mg PO DAILY 03/02/18 06/21/22 release prazosin 2 mg capsule 2 mg PO BEDTIME 03/02/18 06/21/22 quetiapine 400 mg tablet 200 mg PO BEDTIME 03/02/18 06/21/22 triamcinolone acetonide 0.025 % 1 applic topical BID PRN itching 03/02/18 06/21/22 topical cream or rash Previous Rx's Medication Instructions Recorded amoxicillin 875 mg-potassium 1 tab PO BID #20 tabs 06/21/22 clavulanate 125 mg tablet amoxicillin 875 mg-potassium 1 tab PO BID #20 tabs 04/29/24 clavulanate 125 mg tablet hydrocodone 5 mg-acetaminophen 325 1 tab PO Q6H PRN pain #10 tabs 04/29/24 mg tablet Allergies Allergy/AdvReac Type Severity Reaction Status Date / Time meperidine [From Demerol] Allergy Severe Anaphylaxis Verified 04/29/24 18:41 Patient History Medical History Abnormal findings on esophagogastroduodenoscopy (EGD) (~02/15/22) HTN (hypertension) Hyperlipidemia PTSD (post-traumatic stress disorder) Type 2 diabetes mellitus Weight loss, non-intentional (~11/15/21) Social History household members: spouse Smoking Status: Current every day smoker Smoking Status: Current every day smoker alcohol intake frequency: a few times a month Substance Use Type: does not use Exam Initial Vital Signs Initial Vital Signs: Vital Signs Temperature 98.4 F 04/29/24 18:34 Pulse Rate 74 04/29/24 18:34 Respiratory Rate 18 04/29/24 18:34 Blood Pressure 112/57 L 04/29/24 18:34 Pulse Oximetry 97 04/29/24 18:34 Oxygen Delivery Method Room Air 04/29/24 18:34 GENERAL: Well-appearing, well-nourished and in no acute distress. CARDIOVASCULAR: peripheral pulses in tact, cap refill <2 sec RESPIRATORY: No respiratory distress, speaks in full sentences without difficulty EXTREMITIES: Normal range of motion, no clubbing or edema. Neurovascularly intact Right hand distal 5th finger is swollen, nail has fallen off no bite on this finger your injury NEUROLOGICAL: Cranial nerves II through XII grossly intact. Normal gait and speech. SKIN: Multiple puncture wounds no lacerations on both hands mostly dorsal side Course Orders Ordered: ED Orders 04/29/24 18:41 XR hand LT min 3V Stat XR hand RT min 3V Stat Discontinued Medications Acetaminophen (Acetaminophen 325 Mg Tablet) 650 mg PO NOW ONE Stop: 04/29/24 19:38 Last Admin: 04/29/24 19:43 Dose: 650 mg Documented By: GAY Hydrocodone Bitart/Acetaminophen (Hydrocodone/Acet 5/325 Prepack) 1 bottle MISC DIRECTED ONE Stop: 04/29/24 19:56 Last Admin: 04/29/24 20:00 Dose: 1 bottle Documented By: JULIO CESAR Amoxicillin/Clavulanate Potassium (Amoxicillin/Clav 875/125 Mg) 1 tab PO NOW ONE Stop: 04/29/24 19:38 Last Admin: 04/29/24 19:42 Dose: 1 tab Documented By: GAY Vital Signs Vital signs: Vital Signs - 8 hr 04/29/24 18:34 04/29/24 18:49 04/29/24 18:49 Temperature 98.4 F Pulse Rate 74 74 Respiratory Rate 18 Blood Pressure 112/57 L 113/58 L Pulse Oximetry 97 98 Oxygen Delivery Method Room Air 04/29/24 19:00 04/29/24 19:00 04/29/24 19:08 Temperature Pulse Rate 71 Respiratory Rate Blood Pressure 113/55 L 120/62 Pulse Oximetry 97 Oxygen Delivery Method 04/29/24 19:08 Temperature Pulse Rate 75 Respiratory Rate 18 Blood Pressure Pulse Oximetry 98 Oxygen Delivery Method MDM - Animal Bite Imaging Data Extremity x-ray #1: Radiologist's Impression: PROCEDURE: XR HAND LT MIN 3V INDICATIONS: Several Dog bites on bilateral hands TECHNIQUE: 3 views of the hand(s) acquired. COMPARISON: None. FINDINGS: Bones: No fractures or dislocations. Carpal bones are normally aligned. No suspicious bony lesions. Soft tissues: No suspicious soft tissue calcifications. No foreign body or soft tissue gas. IMPRESSION: No fracture, foreign body, or soft tissue gas. Dictated by: Mai Singh M.D. on 04/29/2024 at 19:14 Extremity x-ray #2: Radiologist's Impression: PROCEDURE: XR HAND RT MIN 3V INDICATIONS: Several Dog bites on bilateral hands TECHNIQUE: 3 views of the hand(s) acquired. COMPARISON: None. FINDINGS: Bones: Minimally comminuted 5th distal phalanx tuft fracture. No dislocation. Incidental note of scattered periarticular erosive change. Carpal bones are normally aligned. No suspicious bony lesions. Soft tissues: No suspicious soft tissue calcifications. No foreign bodies or soft tissue gas. IMPRESSION: Fifth distal tuft fracture. No underlying foreign body. Incidental note of possible early inflammatory arthritic change. Clinical correlation recommended. Dictated by: Mai Singh M.D. on 04/29/2024 at 19:15 [facility] Narrative Medical decision making narrative: Patient is 63-year-old male presents today with bilateral dog bites to both hands. No significant laceration. No significant swelling multiple puncture wounds but they are all scabbed over. X-rays are negative except for the right distal pinky which does show distal tuft fracture. Patient reports this is a prior injury for when his finger got smashed about 1 month ago. He has offered a splint but declines. He is given Tylenol and Augmentin here in the ED. offered [place] which he accepts. He reports he can not take NSAIDs. Discharge Plan Departure Patient Disposition: Home Clinical Impression: Dog bite Instructions: DI for Dog Bite Activity Restrictions/Additional Instructions: *You have been diagnosed with dog bite *What to do: Keep wounds clean and dry with soap and water. May apply antibiotic ointment 1-2 times daily. Elevate and ice if swelling or pain worsens. *Continue to take medications as directed Augmentin 875 mg twice a day for 10 days [place] 1 tablet every 6 hours if needed for severe pain *Follow up with your primary care provider in 2-3 days or call [phone] *Return to ER if you should have increasing pain redness swelling numbness tingling or any new, worsening or concerning symptoms CONTROLLED SUBSTANCE DISCHARGE (Narcotoic/benzodiazepine/Flexeril/Phenergan) 1. You have been prescribed narcotic medications, it does have acetaminophen/Tylenol/paracetamol in it, DO NOT TAKE MORE THAN 4,00mg in 24 hours of Tylenol. TRAMADOL DOES NOT CONTAIN TYLENOL 2. Please understand that we cannot provide further refills of narcotics, benzodiazepines or controlled substances through the ED and her pain management will need to be through your provider. 3. While on these medications you cannot drive or operate heavy machinery. 4. You cannot sign legal documents or perform any duties such as this. 5. As long as you're taking opiate pain medications he should also be taking a stool softener such as Colace, Dulcolax, MiraLAX or prune juice, to help avoid constipation. Prescriptions: New amoxicillin-pot clavulanate 875-125 mg tablet 1 tab PO BID Qty: 20 0RF hydrocodone-acetaminophen 5-325 mg tablet 1 tab PO Q6H PRN (Reason: pain) Qty: 10 0RF No Action amoxicillin-pot clavulanate 875-125 mg tablet 1 tab PO BID Qty: 20 0RF simvastatin 20 mg tablet 10 mg PO BEDTIME sitagliptin phos-metformin 50-1,000 mg tablet 1 tab PO BID triamcinolone acetonide 0.025 % Cream 1 applic TOPICAL BID PRN (Reason: itching or rash) omeprazole 20 mg Capsule,Delayed Release(Dr/Ec) 20 mg PO DAILY ammonium lactate 12 % Cream 1 applic TOPICAL [id number] PRN (Reason: Rash) ketoconazole 2 % Cream 1 applic TOPICAL DAILY PRN (Reason: Rash) Patient Comments: shoulders and thighs prazosin 2 mg Capsule 2 mg PO BEDTIME quetiapine 400 mg Tablet 200 mg PO BEDTIME cholecalciferol (vitamin D3) [Vitamin D3] 1,000 unit Tablet 1,000 unit PO DAILY Referrals: ProviderDanae [Primary Care Provider] - Stand Alone Forms: Patient Portal/API
[2024-04-29] MEDS: HYDROCODONE/ACET 5/325 PREPACK 1 BOTTLE MISC (20:00)
== END 2024-04-29 20:07 | disposition home or self-care (01) ==
PROVIDERS: Emergency Provider Emergency Medicine
DX: S61.452A Open bite of left hand, initial encounter (principal); S61.451A Open bite of right hand, initial encounter; W54.0XXA Bitten by dog, initial encounter
CPT/HCPCS: 73130; 99283

== ENCOUNTER → 2024-06-20 13:51 | Outpatient (CLI) | payer MEDICARE, OTHER, SELFPAY ==
--- NOTE | 2024-06-20 13:52 | DI.MRI.S_ITS ---
PROCEDURE: MR CERVICAL SPINE WO CON INDICATIONS: WEAKNESS,SCIATICA OF LEFT SIDE,PARESTHESIA TECHNIQUE: Noncontrast sagittal T1 spin echo and T2 fast spin echo, sagittal STIR, foraminal oblique sagittal T2 fast spin echo, and axial gradient echo or T2 fast spin echo through the cervical spine. COMPARISON: [facility], MR, MR CERVICAL SPINE WO/W CON, 11/03/2023, 11:21. [facility], MR, MR CERVICAL SPINE WO CON, 06/21/2022, 16:30. FINDINGS: Image quality: Diagnostic Alignment and Curvature: There is normal bony alignment. Bone Marrow: Marrow demonstrates normal overall signal. Stable postsurgical changes from anterior cervical discectomy and fusion of C3-4 through the C6-7. No findings to suggest abnormal marrow signal intensity or hardware complication. Spinal Cord: Visualized spinal cord has normal size and signal. No cerebellar tonsillar herniation. Paraspinous Soft Tissues: No paravertebral masses. Prevertebral soft tissues are normal in thickness. There is diffuse increased T2/FLAIR signal intensity involving the left paraspinal soft tissues of of the cervical spine from C2 through C4. No evidence for organized fluid collection seen. C2-C3: No significant neuroforaminal or spinal canal stenosis. C3-C4: Discectomy and fusion. Minimal spinal canal stenosis, stable. There is mild left and minimal right bilateral neuroforaminal stenosis. C4-C5: Discectomy and fusion. Broad-based posterior disc osteophyte complex. Mild spinal canal stenosis. No cord signal abnormality. No significant neuroforaminal stenosis. C5-C6: Discectomy and fusion. Posterior disc osteophyte complex. Mild spinal canal stenosis. Mild bilateral neuroforaminal stenosis. C6-C7: Discectomy fusion. Broad-based posterior disc osteophyte complex. Bilateral facet arthropathy. Mild-moderate left and mild right bilateral neuroforaminal stenosis. Minimal spinal canal stenosis. C7-T1: Bilateral facet arthropathy. Minimal degenerative endplate changes. No significant neuroforaminal or spinal canal stenosis. IMPRESSION: 1. Stable postsurgical changes and alignment from anterior cervical discectomy and fusion of C3-C4 through C6-7. 2. Mild, ill-defined soft tissue inflammatory changes involving the left perispinal region adjacent to the neural foramina from the level of C2 through C4. No evidence for organized fluid collection seen. Findings may represent early neuritis either inflammatory or infectious in etiology. Early epidural abscess also not able to be excluded at this time. Recommend further evaluation with contrast enhanced cervical spine MRI to further characterize. 3. Multilevel spondylitic changes as described above. No associated cord signal abnormalities. Dictated by: Zion Moreno M.D. on 06/20/2024 at 16:26 Approved by: Zion Moreno M.D. on 06/20/2024 at 16:55
== END ==
PROVIDERS: Referring Provider Registered Nurse; Visit Provider Registered Nurse
DX: M47.812 Spondylosis without myelopathy or radiculopathy, cervical region (principal); M54.2 Cervicalgia; G95.9 Disease of spinal cord, unspecified; R20.2 Paresthesia of skin; R53.1 Weakness; R20.0 Anesthesia of skin; G89.4 Chronic pain syndrome; Z98.1 Arthrodesis status
CPT/HCPCS: 72141

== ENCOUNTER → 2024-06-27 15:35 | Outpatient (CLI) | payer MEDICARE, OTHER, SELFPAY ==
--- NOTE | 2024-06-27 15:37 | DI.MRI.S_ITS ---
PROCEDURE: MR THORACIC SPINE WO CON INDICATIONS: WEAKNESS,SCIATIC LT SIDE,PARESTHESIAS OF SKIN TECHNIQUE: Noncontrast sagittal T1 spine echo and T2 fast spin echo, sagittal STIR, and T2 fast spin echo through the thoracic spine. COMPARISON: None. FINDINGS: Image quality: Excellent. Alignment and Curvature: Accentuated thoracic kyphosis is seen. No focal AP alignment abnormality is seen. Bone Marrow: Marrow is of normal overall signal. Multiple levels of midthoracic spine anterior wedge deformity are seen. No acute vertebral body compression fractures. Spinal Cord: Visualized spinal cord is normal in size and signal. Paraspinous Soft Tissues: No paravertebral masses. Miscellaneous: There is partial visualization of lower cervical spine postoperative change. Generalized degenerative changes are seen, scattered levels of [id number] disc space narrowing, with associated endplate irregularity. No significant neural foraminal or central canal narrowing can be seen. IMPRESSION: Accentuated thoracic kyphosis is seen. No significant neural foraminal or central canal narrowing can be seen. Dictated by: Sukumar Cedeno M.D. on 06/27/2024 at 17:11 Approved by: Sukumar Cedeno M.D. on 06/27/2024 at 17:12
--- NOTE | 2024-06-27 15:37 | DI.MRI.S_ITS ---
PROCEDURE: MR LUMBAR SPINE WO CON INDICATIONS: WEAKNESS,SCIATIC LT SIDE,PARESTHESIAS TECHNIQUE: Noncontrast sagittal T1 spin echo and T2 fast echo, sagittal STIR, and T2 fast spin echo through the lumbar spine. In cases with scoliosis, additional coronal T2 fast spin echo may be performed. COMPARISON: [facility], MR, MR LUMBAR SPINE WO CON, 11/13/2021, 11:24. [facility] [place], CR, XR LUMBAR SPINE 2 OR 3 VIEWS, 08/30/2022, 14:40. [facility], MR, MR CERVICAL SPINE WO CON, 06/20/2024, 13:58. [facility], MR, MR THORACIC SPINE WO CON, 06/27/2024, 16:18. FINDINGS: Image quality: This examination is limited by involuntary motion artifact. Alignment and Curvature: There is normal bony alignment. Bone Marrow: Marrow is of normal overall signal. No acute vertebral body compression fractures. Spinal Cord: Conus medullaris terminates at the L1 level. Visualized cord demonstrates normal signal and size. Paraspinous Soft Tissues: No paravertebral masses. T12-L1: Normal appearance. L1-L2: Mild loss of disc height is seen. Loss of disc signal is seen. Mild generalized disc bulge is seen. There is a superimposed central disc protrusion. There is mild left-sided and no right-sided neural foraminal narrowing. Mild central canal narrowing is seen. When comparison is made with the prior images, these findings are similar. L2-L3: The disc height and disk signal are relatively well-preserved. Mild facet joint hypertrophy is seen. There is mild right-sided and moderate left-sided neural foraminal narrowing. Mild to moderate central canal narrowing is seen. There is mild progression of degenerative change compared to the prior. L3-L4: Mild loss of disc height is seen. Loss of disc signal is seen. Moderate disc bulge is seen, which is eccentric to the right. Mild facet joint hypertrophy is seen. Moderate bilateral neural foraminal narrowing can be seen, left worse than right. Mild central canal narrowing is seen. There is mild progression compared to 202. L4-L5: The disc height is well-preserved. Loss of disc signal is seen at this level. Mild to moderate disc bulge is seen, which is eccentric to the right. There is moderate right-sided and mild left-sided facet hypertrophy. There is moderate right-sided and at least moderate left-sided neural foraminal narrowing. There is a degree of compression upon the exiting left L4 nerve root. These imaging findings have progressed compared to the prior study. L5-S1: The disc height and disk signal are relatively well-preserved. Mild generalized disc bulge is seen. Mild facet joint hypertrophy is seen. No significant neural foraminal or central canal narrowing can be seen. Stable from the prior study. IMPRESSION: Multiple levels of lumbar spine degenerative change can be seen, which are mildly progressed at a few levels compared to 2021. Dictated by: Sukumar Cedeno M.D. on 06/27/2024 at 17:13 Approved by: Sukumar Cedeno M.D. on 06/27/2024 at 17:16
== END ==
PROVIDERS: Referring Provider Registered Nurse; Visit Provider Registered Nurse
DX: M40.204 Unspecified kyphosis, thoracic region (principal); M47.816 Spondylosis without myelopathy or radiculopathy, lumbar region; M47.817 Spondylosis without myelopathy or radiculopathy, lumbosacral region; M54.32 Sciatica, left side; R20.0 Anesthesia of skin; R20.2 Paresthesia of skin; R53.1 Weakness; G89.4 Chronic pain syndrome
CPT/HCPCS: 72146; 72148

== ENCOUNTER → 2024-07-09 13:15 | Outpatient (CLI) | payer MEDICARE, OTHER, SELFPAY ==
--- NOTE | 2024-07-09 13:17 | DI.CT.S_ITS ---
PROCEDURE: CT CERVICAL SPINE WO CON INDICATIONS: radiculopathy TECHNIQUE: Noncontrast 3 mm thick sections acquired from the skull base to the T4 level. Sagittal and coronal reformats were then constructed. For radiation dose reduction, the following was used: automated exposure control, adjustment of mA and/or kV according to patient size. COMPARISON: [facility], MR, MR CERVICAL SPINE WO CON, 06/20/2024, 13:58. FINDINGS: Image quality: Excellent. Bones: No fractures or dislocations. Multilevel degenerative changes of the cervical spine status post C3 through C7 ACDF. No definite evidence of hardware complication. Degree of central canal and neural foraminal stenosis are better evaluated on MRI. Visualized superior ribs are intact. Soft tissues: Prevertebral soft tissues are normal in thickness. The previously described stir hyperintense signal within left paraspinous musculature is not well appreciated on CT. No paravertebral hematomas. No apical pneumothoraces. IMPRESSION: Multilevel degenerative changes of the cervical spine. Postoperative changes from C3 through C7 ACDF. No evidence of hardware complication. Inflammatory changes involving the left paraspinal soft tissues are not well appreciated by CT, please refer to recent prior MRI. Dictated by: Jayden Cox M.D. on 07/10/2024 at 11:27 Approved by: Jayden Cox M.D. on 07/10/2024 at 11:31
== END ==
PROVIDERS: Referring Provider Orthopaedic Surgery Orthopaedic Surgery of the Spine; Visit Provider Orthopaedic Surgery Orthopaedic Surgery of the Spine
DX: M47.22 Other spondylosis with radiculopathy, cervical region (principal); Z98.1 Arthrodesis status
CPT/HCPCS: 72125

== ENCOUNTER → 2025-03-25 17:30 | Outpatient (ROUT) | payer MEDICARE, OTHER, SELFPAY | PROVIDERS: Visit Provider Dermatology | DX: M06.2 Rheumatoid bursitis (principal) | CPT/HCPCS: 87070; 87075; 87205 ==